=== PATIENT | female | born 1960 | race Hispanic/Latino ===

== ENCOUNTER 2023-10-13 14:56 | Emergency (ER) | payer OTHER, SELFPAY ==
--- NOTE | ~2023-10-13 | CT_ITS ---
EXAMINATION: CT brain wo con DATE: 10/13/2023 17:13 INDICATION: Headache. Fall. TECHNIQUE: Computed tomography (CT) of the head was performed without intravenous contrast. The mA wa s adjusted according to patient size. Iterative reconstruction technique was employed. The dose-lengt h product was 605.33 mGy-cm. COMPARISON: None FINDINGS: There is no intracranial hemorrhage, acute infarction, or abnormal intracranial mass lesion . The ventricles are normal in size. There are likely changes of ocular lens replacement surgeries. T here is mild mucosal thickening in right maxillary sinus. The mastoid air cells are normal. IMPRESSION: 1. Normal brain. Reviewed, dictated and finalized at location A. UCTION SCHEDULER IMPRESSION: 1. Normal brain.
[2023-10-13 15:00] VITALS: BP 167/64; PULSE 102; RESP 16; TEMP 36.1; O2SAT 95
[2023-10-13 15:36] VITALS: BP 158/72; PULSE 100; RESP 16; O2SAT 96
[2023-10-13] MEDS: KETOROLAC 30 MG/ML VIAL (*BKC) IM (17:27)
[2023-10-13 17:32] VITALS: BP 160/95; PULSE 82; RESP 18; O2SAT 99
[2023-10-13 18:34] VITALS: BP 131/79; PULSE 82; RESP 18; O2SAT 100
[2023-10-13] MEDS: HYDROcodone/acetaminophen (*CRX) 5-325 MG TABLET 1 TAB PO (18:35)
--- NOTE | 2023-10-13 18:39 | ED.GENADULT ---
HPI - General Adult General Chief complaint: Headache Stated complaint: fall, head injury Time Seen by Provider: 10/13/23 15:35 History of Present Illness HPI narrative: 63-year-old female presents emergency department for evaluation for headache that started after a ground level fall a few days ago. Patient was working at [employer] and slipped and corns causing her to strike the back of the head. Patient denies loss of consciousness. Patient has been taking Tylenol and ibuprofen for pain control with no significant improvement. Patient denies any associated numbness or weakness. Patient is able to ambulate at baseline. Related Data Allergies Allergy/AdvReac Type Severity Reaction Status Date / Time diphenhydramine Allergy Itching Verified 10/13/23 15:42 Review of Systems Review of Systems: All systems reviewed & are unremarkable except as noted in HPI and below Exam Narrative: APPEARANCE: Well appearing, no pain, no distress, well-nourished. HEAD: normocephalic, atraumatic. EYES: PERRLA/EOMI, conjunctivae clear. NOSE: Normal no drainage EARS:TMS clear with good light reflex. THROAT: Pharynx clear, no exudate. NECK: Supple. No adenopathy, no masses. RESPIRATORY: Airway patent, respirations nonlabored. Clear to auscultation bilaterally, no rales, rhonchi, wheezing. CARDIOVASCULAR: Regular rate and rhythm without murmurs rubs or gallops. ABDOMINAL: Soft, nontender, nondistended, normal bowel sounds MUSCULOSKELETAL: Moves all extremities. Strength/ROM intact, No edema, No calf tenderness. NEURO: Alert. Cranial nerves II through XII intact. Good gait. Good coordination SKIN: Warm, dry. Normal Color Course Course Emergency Course: 63-year-old female presented emergency department for evaluation of headache. Patient reports he did have improvement of her headache with the Toradol. Head CT shows no acute intracranial abnormality. Patient was concerned she might have urinary tract infection. Patient did have +glucose but no evidence of underlying infection. Patient and family were updated on the results of the workup and They were encouraged to have close follow-up with a primary care physician. Vital Signs Vital signs: Vital Signs Temperature 97.0 F L 10/13/23 15:00 Pulse Rate 102 H 10/13/23 15:00 Respiratory Rate 16 10/13/23 15:00 Blood Pressure 167/64 H 10/13/23 15:00 Pulse Oximetry 95 10/13/23 15:00 Oxygen Delivery Room Air 10/13/23 15:00 Temperature 97.0 F L 10/13/23 15:00 Pulse Rate 82 10/13/23 18:34 Respiratory Rate 18 10/13/23 18:34 Blood Pressure 131/79 10/13/23 18:34 Pulse Oximetry 100 10/13/23 18:34 Oxygen Delivery Room Air 10/13/23 15:36 Medical Decision Making Differential Diagnosis Differential Diagnosis: migraine, headache, concussion, intracranial abnormality Vital Signs Vital Signs: Vital Signs Temperature 97.0 F L 10/13/23 15:00 Pulse Rate 102 H 10/13/23 15:00 Respiratory Rate 16 10/13/23 15:00 Blood Pressure 167/64 H 10/13/23 15:00 Pulse Oximetry 95 10/13/23 15:00 Oxygen Delivery Room Air 10/13/23 15:00 Temperature 97.0 F L 10/13/23 15:00 Pulse Rate 82 10/13/23 18:34 Respiratory Rate 18 10/13/23 18:34 Blood Pressure 131/79 10/13/23 18:34 Pulse Oximetry 100 10/13/23 18:34 Oxygen Delivery Room Air 10/13/23 15:36 Lab Data Labs: Lab Results 10/13/23 Range/Units 18:36 Urine Color Yellow (Yellow) Urine Appearance Clear (Clear) Urine pH 5.5 (5.0-9.0) Ur Specific [place] 1.033 (1.001-1.035) Urine Protein Negative (Negative) mg/dL Urine Glucose (UA) 3+ H (Negative) mg/dL Urine Ketones Negative (Negative) mg/dL Ur Blood (Man) Negative (Negative) Urine Nitrate Negative (Negative) Urine Bilirubin Negative (Negative) Urine Urobilinogen 0.2 (<2.0) mg/dL Leukocyte Esterase Rfl Negative (Negative) ARSH/UL Discharge Plan Discharge Clinical Im
[2023-10-13 18:43] LABS: Appearance Urine Clear (Clear); Bilirubin Urine Negative (Negative); Blood Urine Negative (Negative); Color Urine Yellow (Yellow); Glucose Urine UA 3+ mg/dL (Negative); Ketones Urine Negative (Negative); Leukocyte Esterase Ur Negative LEU/UL (Negative); Nitrate Urine Negative (Negative); Protein Urine Negative (Negative); Specific Grav Ur 1.033 (1.001-1.035); Urobilinogen Urine 0.2 mg/dL (<2.0); pH Urine 5.5 (5.0-9.0)
[2023-10-13 18:48] LABS: Add Urine Microscopic? NO
== END 2023-10-13 19:04 | disposition home or self-care (01) ==
PROVIDERS: Emergency Provider Emergency Medicine
DX: R51.9 Headache, unspecified (principal); W01.0XXA Fall on same level from slipping, tripping and stumbling without subsequent striking against object, initial encounter
CPT/HCPCS: 70450; 81003; 96372; 99284; A9270; J1885

== ENCOUNTER 2024-12-15 19:54 | Emergency (ER) | payer SELFPAY ==
--- NOTE | ~2024-12-15 | CT_ITS ---
EXAMINATION: CTA BRAIN/CAROTID DATE: 12/16/2024 01:13 INDICATION: Bilateral arm tremors and ataxia. TECHNIQUE: Computed tomographic angiography (CTA) of the head and neck was performed with 100 mL Omni paque-350 intravenous contrast. Multiplanar reconstructions and maximum intensity projection 3D-recon structions of the carotid arteries and of the intracranial arteries were created by the technologist on a separate workstation. Precontrast CT of the head was also obtained. Automated exposure control and iterative reconstruction technique were employed.The dose-length product was 1980.35 mGy-cm. COMPARISON: Head CT dated 10/13/2023 FINDINGS: Carotid arteries: Aortic arch is normal in caliber with minimal nonhemodynamically significant atherosclerotic plaque a nd no dissection. There is a small of atherosclerotic plaque with 0% stenosis of the right and left c arotid bulbs relative to normal distal artery lumen diameter (NASCET criteria). Mild respiratory christiana on and dependent atelectasis in the visualized upper lungs. Cervical soft tissues are unremarkable. M ild cervical spondylosis. Head: No acute intracranial hemorrhage, acute infarction or abnormal extra axial fluid collection. There is mild scattered white matter hypoattenuation consistent with chronic small vessel ischemic disease. V entricles are normal and symmetric. No mass/mass effect. Changes of bilateral intraocular lens replac ement. The orbits, paranasal sinuses and mastoid air cells are normal. Intracranial arteries The left vertebral artery is dominant. There is no hemodynamically significant stenosis in the verteb ral, basilar and internal carotid arteries. Vertebral arteries are codominant. There are no aneurysms identified. Both A1 and P1 segments are patent. Cerebral arterial arborization appears symmetric. IMPRESSION: 1. Small amount of atherosclerotic plaque with 0% stenosis of the right and left carotid bulbs relati ve to normal distal artery lumen diameter (NASCET criteria). 2. Unremarkable cerebral CT angiogram with no hemodynamic significant stenosis, thrombosis or aneurys m. 3. Normal aging brain with mild scattered white matter hypoattenuation consistent with chronic small vessel ischemic disease. No acute intracranial process. Reviewed, dictated and finalized at location B. CTOR CLINICAL PHARMACOLOGY IMPRESSION: 1. Small amount of atherosclerotic plaque with 0% stenosis of the right and lef t carotid bulbs relative to normal distal artery lumen diameter (NASCET criteri a). 2. Unremarkable cerebral CT angiogram with no hemodynamic significant stenosis, thrombosis or aneurysm. 3. Normal aging brain with mild scattered white matter hypoattenuation consiste nt with chronic small vessel ischemic disease. No acute intracranial process.
--- NOTE | ~2024-12-15 | CT_ITS ---
EXAMINATION: CT cervical spine wo con DATE: 12/16/2024 01:13 INDICATION: Arm tremors. TECHNIQUE: Computed tomography (CT) of the cervical spine was performed without intravenous contrast. The dose-length product was 365 mGy-cm. Automated exposure control and iterative reconstruction tech Sonnedixque were employed. COMPARISON: None FINDINGS: Craniovertebral junction is normal. Odontoid process is normal. No evidence for perched fac et. Vertebral body heights are maintained. There is mild superior endplate compression deformity of T 3, likely chronic. Lung apices are normal. No paraspinal soft tissue abnormality. No acute fracture or traumatic malalignment. IMPRESSION: 1. No acute abnormality of the cervical spine Reviewed, dictated and finalized at location A. L DBA
--- OUTSIDE RECORDS SUMMARY | 2024-12-15 19:56 | XMS_ITS ---
Author Organization [facility] Address [address] [place] [address] Care Team Providers Care Technical Service Rep Name Role Phone Thomas Borjas Primary Care Provider Social History Sex Assigned At : Social History Observation Description Sex Assigned At Female Encounters Encounter Location Date Provider Diagnosis [address] [address] 06/24/2023 Thomas Borjas GERD (gastroesophageal reflux disease) K21.9 Assessments Encounter Date Diagnosis (ICD Code) Assessment Notes Treatment Notes Treatment Clinical Notes Section Notes 06/24/2023 GERD (gastroesophage al reflux disease) (ICD-10 - K21.9) Plan Of Treatment No Information Progress Notes * Keyur HEINB:1960 (62 yo F)Acc No.[id number]:06/24/2023 Patient:?HeinGabby fernandez :1960???Age:62 Y???Sex:Female Address:[address] [place] [address], [id number] * true * Date:? Generated for Simon koch/Zachary/eTransmitting on:?12/15/2024 07:56 PM BOOKKEEPERS SUPERVISOR
--- OUTSIDE RECORDS SUMMARY | 2024-12-15 19:57 | XMS_ITS | Patient Health Record ---
Author Organization [facility] Address [address] [place] [address] Care Team Providers Care Topographic Computator Name Role Phone Thomas Borjas Primary Care Provider [phone] Allergies No Known Allergies Reason For Referral No Information Medications Medication SIG (Take, Route, Frequency, Duration) Notes Start Date End Date Status Gabapentin 100 MG TAKE 2 CAPSULES BY M OUTH ONCE DAILY for 15 Active Aspirin Low Dose 81 MG TAKE 1 TABLET BY MOUTH EVERY DAY FOR 30 DAYS for 30 Active Januvia 100 MG TAKE 1 TABLET BY PENNIE TH EVERY DAY FOR 30 DAYS for 30 Active metFORMIN HCl 500 MG TAKE 1 TABLET BY MO UTH TWICE A DAY WITH MEALS for 30 Active Atorvastatin Calcium 40 MG TAKE 1 TABLET BY MOUTH EVERY DAY FOR 30 DAYS for 30 Active Famotidine 40 MG TAKE 1 TABLET BY PENNIE TH EVERY DAY AT BEDTIME FOR 30 DAYS Orally Once a day Active Betamethasone Valerate 0.1 % APPLY TO AFFECTED AREA ONCE DAILY FOR 30 DAYS Externally Twice a day as needed for 30 days Active TEST STRIPS, FORMULARY ANY DIRECTED V IA METER twice a day for 30 days 03/19/2022 Active metformin as directed Unknown Betamethasone Dipropionate 0.05 % 1 application as needed Externally Twice a day for 14 days 04/01/2022 Active Nystatin 785675 UNIT/GM 1 application Ex ternally Twice a day for 30 days 03/19/2022 Active Social History Tobacco Use: Social History Observation Description Date Details (start date - stop date) Never Smoker NA - NA Sex Assigned At : Social History Observation Description Sex Assigned At Female Dont use, Tobacco Use/Smoking Question Answer Notes Are you a nonsmoker PRAPARE Question Answer Notes What is your current housing situation? I have h ousing Are you worried about losing your housing? No What is the highest level of school that you have finished? High school diploma or GED What is your current work situation? Unemployed and seeking work In the past year, have you o r any family members you live with been unable to get any of the following when it was really needed? Check all that apply Clothing,Utilities Has lack of transportation k ept you from medical appointments, meetings, work or from getting things needed for daily living? No How often do you see or talk to people that you care about and feel close to? (For example: talking to friends on the phone, visiting friends or family, going to roman catholic or club meetings) More than 5 times a week How stressed are you? Stress is when someone feels tense, nervous, anxious, or can\t sleep at night because their mind is troubled A little bit In the past year have you sp ent more than 2 nights in a row in a care home, usp, penitentiary center, or juvenile correctional facility? I choose not to answer this question Are you a refugee? No What country are you from? Country Other than the [place] (please write in notes) Please specify: [facility] Do you feel physically and e motionally safe where you currently live? Yes In the past year, have you b een afraid of your partner or ex-partner? No PRAPARE Score: 9 Problems Problem Type SNOMED Code ICD Code Onset Dates Problem Status W/U Status Risk Notes Problem Tobacco user (529716135) Nicotine dependence, unspecified, uncomplicated (F17.200) Active confirmed Problem Gastroesophageal reflux disease (520032596) GERD (gastroesophagea l reflux disease) (K21.9) Active confirmed Problem Diabetes mellitus without complication (831765310) Diabetes (E11.9) Active confirmed Problem Back pain (079356196) Back pain (M54.9) Active confirmed Problem Breast cancer screening (624663298) Breast cancer screening (Z12.39) Active confirmed Problem Glucosuria (64291788) Glucosuria (R81) Active confirmed Problem Pain (82088859) Pain (R52) Active confirmed Problem Hyperlipidaemia (42696298) Hyperlipemia (E78.5) Active confirmed Problem Seasonal allergy (911163396) Seasonal allergies (J30.2) Active confirmed Problem Gynecological examination normal (467523017045410) Well woman exam with routine gynecological exam (Z01.419) Active confirmed Problem Abdominal discomfort (74874040) Abdominal discomfort (R10.9) Active confirmed Problem CT of abdomen abnormal (92528545850375942) Abnormal CT of the abdomen (R93.5) Active confirmed Plan Of Treatment Pending Test Test Name Order Date Xray : Spines, cervical 2 views 12/25/19 Xray : Thoracic spine 2 views 12/25/2022 Xray : LS Spine 12/25/2022 Mammogram Breast - Bilateral Diagnostic 11/13/2022 Insurance Providers Payer Name Payer Address Payer Phone Subscriber Number Group Number Insured Name Patient Relationship to Insured Coverage Start Date Coverage End Date [employer] [facility] [address] [place] [phone] [id number] Gabby Aguilar Self - patient is the insured 2 Medical (General) History Medical History History ICD Code diabetes type 2 hyperlipidemia GERD Surgical History Surgery Date(Month/Year) C section 1991 appendectomy 1998 Hospitalization History Reason Date(Month/Year) Child 1991 appendectomy 1998
--- OUTSIDE RECORDS SUMMARY | 2024-12-15 19:57 | XMS_ITS ---
Author Organization [facility] Address [address] [place] [address] Care Team Providers Care Director Technical Name Role Phone Thomas Borjas Primary Care Provider [phone] Camila Fischer REASON FOR VISIT Used to see Marine-Follow up and mammogram order Social History Sex Assigned At : Social History Observation Description Sex Assigned At Female Encounters Encounter Location Date Provider Diagnosis [address] [address] 06/24/2023 Camila Fischer Plan Of Treatment No Information Progress Notes * Liv HEINOraB:1960 (64 yo F)Acc No.[id number]:06/24/2023 UNLOCKED PROGRESS NOTE Progress Notes Patient:?Liv HEINa Provider:?Camila Fischer, MSN, AP RN, MORTGAGE PROCESSOR-BC, MORTGAGE PROCESSOR-C :1960???Age:62 Y???Sex:Female D ate:06/24/2023 Address:[address] [place] [id number] Pcp:Thomas Borjas Subjective: * Chief Complaints: * ???1. Used to see Marine-Follow up and mammogram order. * Medical History:? Objective: * Vitals:? Assessment: Plan: * Treatment: * * Electronic signature of Andrei Fischer , METAL FITTER, [id number] on 12/15/2024 at 07:56 PM GEOCHEMISTRY TEACHER Sign off status: Pending * Provider:?Camila mora, MSN, METAL FITTER, MORTGAGE PROCESSOR-BC, MORTGAGE PROCESSOR-C Date:?06/24/2023 Generated for Printing/Faxing/eTransmitting on:?12/15/2024 07:56 PM GEOCHEMISTRY TEACHER
--- OUTSIDE RECORDS SUMMARY | 2024-12-15 19:57 | XMS_ITS | Data Portability ---
Author Organization [place] [facility], Main Office Address [address] [place] [address] Care Team Providers Care Adult Basic Education Teacher Name Role Phone NIRMAL MULLEN Ceramic Engineer Assessment Encounter Date Assessment Date Assessment LastModified by Organization Details LastModified Time 2023 2023 63-year-old patient presents today sacral fracture that happened on 08/20/2023. She was at work when she slipped and fell on a puddle of tea and landed directly on her buttocks. She felt immediate pain. She presented to the emergency room where CT was performed that showed a S4 level nondisplaced sacral fracture. Since the injury she has been taking tramadol and using a donut to sit on. It is still extremely painful for her to walk or sit. She denies any injury to the tailbone in the past. Review of systems per patient questionnaire Imaging: CT reviewed from the emergency room shows a nondisplaced fracture of the distal sacrum at the S4 level. Physical exam: Patient walking with an antalgic gait. Pain with palpitation over the sacral area. Sensation intact. We will treat her fracture non operatively. She should continue to use the donut for sitting if it is more comfortable for her. We will order meloxicam for anti-inflammator y therapy. We will have her do physical therapy but she should wait to start for another 2 weeks due to her pain. We will have her off of work until we see her back in 4 weeks. Not available 08/28/2023 09:45:49 10/13/2023 10/13/2023 63-year-old patient presents today sacral fracture that happened on 08/20/2023. She was at work when she slipped and fell on a puddle of tea and landed directly on her buttocks. We ordered meloxicam as well as a course of physical therapy. She has been attending therapy for about 2 weeks now. She states is helping some but she is still having pain with sitting and walking. She rates her pain at 8/10 today. Physical exam: Patient walking with an antalgic gait. Sitting on donut. Pain with palpitation over the sacral area. Sensation intact. We will have her continue physical therapy at this time to work on her gait and sitting. Since she is still experiencing pain with daily activities we will keep her on the same work restrictions. We will see her back in 4 weeks to check her progress. Not available 10/13/2023 12:40:52 12/02/2023 12/02/2023 63-year-old female presents for follow-up of her sacral minimally displaced fracture treated non operatively. She reports still having pain in the pelvis, pain with prolonged sitting or standing, currently rated as 8/10. She has stopped her course of physical therapy. She is still taking tramadol and meloxicam. She still has tenderness over the sacrum, which bothers her with walking. She has good range of motion strength of her bilateral lower extremities. Given her failure to improve with persistent conservative management, we will refer her to a paint prep technician, who may consider doing a cortisone injection. We will keep her on the same work restrictions. We will have her follow up pending recs from pain management.. [email or web address] Not available 12/02/2023 23:31:17 Plan of Treatment Reminders Order Date Submit Date Provider Last Modified By Organization Details Last Modified Time Details Appointments None recorded. Lab None recorded. Referral physical therapist referral - [facility] 023 [facility], [address], [place], [address], 3 17:41:12 pain management referral - Pt is W/C 2023 024 [place], [address], [address], [place], [address], 4 12:50:40 Procedures None recorded. Surgeries None recorded. Imaging None recorded. Medication Orders Mobic 15 mg tablet 2022 023 [email or web address] [id number], [address] [place], [place], [id number], 09:46:14 Patient TargetsNo targets recorded. Patient InstructionsNo instructions recorded. Reason for Referral Physical Therapist Referral for Pain in sacrum [facility] TREAT Referring Physician: Mary Moy, Orthopedic Surgery, Encounter Date: 2023 Pain Management Referral for Pain in sacrum Pt is W/C Referring Physician: Blade Canales, Orthopedic Surgery, Encounter Date: 12/02/2023 Results Created Date Observation Date Name Description Value Unit Range Abnormal Flag Note LastModifiedBy Organization Detail LastModifiedTime 08/24/[address], cervi karin spine , w/o contr ast No observ ation record ed. [email or web address] Not Available 2022 17:04:50 08/24/20 23 XR, elbow No observ ation record ed. [email or web address] Not Available 2022 17:04:54 08/24/[address], pelvi s, w/o contr ast No observ ation record ed. [email or web address] Not Available 2022 17:04:59 Result Notes None recorded. Problems Name Problem SNOMED Code Status Onset Date Resolution Date Notes Provider Name and Address Organization Details Recorded Time Imaging of gastrointest inal tract abnormal 450350878 Active 2022 Not Available [facility] 3 01:47:44 Pain in sacrum 3264226254 Active 2022 Radha Callahan, ATC L null, [facility] [employer] 3 15:32:35 Low back pain 986390235 Active 2022 Anay caceres, [employer] [facility] [employer] 10:55:51 Problem Notes None recorded. Procedures Surgical History None recorded. Imaging Results Imaging Date Name Status LastModified by Organiz ation Details LastModified Time 08/24/2023 CT, cervical spine, w/o contrast completed [email or web address] Information not available 08/24/2023 17:04:50 08/24/2023 XR, elbow completed [email or web address] Information no t available 08/24/2023 17:04:54 08/24/2023 CT, pelvis, w/o contrast completed [email or web address] Information not available 08/24/2023 17:04:59 Procedure Notes None recorded. Medical Equipment None Reported. Allergies Allergen ID Allergen Name Allergen Category Reaction Reaction Severity Criticality Documentation Date Start Date Code Code System Note Provider Name and Address Organization Details Recorded Time 18305 Benadryl medicatio n rash severe Not available 01/15/2023 7 RxNorm Not Available [facility] 01:48:25 Medications Name Sig Start Date Stop Date Status Note LastModified by Organization Details LastModified Time atorvastati n 40 mg tablet TAKE 1 TABLET BY MOUTH EVERY DAY active Not Available Not Available No t Available metformin 500 mg tablet TAKE 1 TABLET BY MOUTH TWICE A DAY WITH MEALS active Not Available Not Available No t Available ondansetron HCl 4 mg tablet TAKE 1 TABLET BY MOUTH EVERY 8 HOURS active Not Available Not Available No t Available famotidine 40 mg tablet TAKE 1 TABLET BY MOUTH EVERY DAY AT BEDTIME active Not Available Not Available No t Available tramadol 50 mg tablet Take 1 tablet every 6-8 hours by oral route as needed. 2022 active Not Available Not Available Not Avai lable Mi-Acid Gas Relief (simethicon e) 80 mg chewable tablet CHEW 1 TAB BY MOUTH 3 TO 4 TIMES A DAY NEEDED FOR ABDOMINAL DISTENTIO N active Not Available Not Available No t Available Mobic 15 mg tablet Take 1 tablet every day by oral route. 2022 active Not Available Not Available Not Avai lable famotidine 20 mg tablet TAKE 1 TABLET BY MOUTH TWICE A DAY [id number] active Not Available Not Available No t Available dicyclomine 20 mg tablet TAKE 1 TABLET BY MOUTH THREE TIMES A DAY active Not Available Not Available No t Available betamethaso ne valerate 0.1 % topical cream APPLY TO AFFECTED AREA TWICE A DAY NEEDED active Not Available Not Available No t Available pantoprazol e 40 mg tablet,chiara yed release TAKE 1 TABLET BY MOUTH EVERYDAY AT BEDTIME active Not Available Not Available No t Available nystatin 100,000 unit/gram topical cream APPLY TO AFFECTED AREA TWICE A DAY FOR 30 DAYS 11/05 completed Not Available Not Available Not Available aspirin 81 mg chewable tablet TAKE 1 TABLET BY MOUTH EVERY DAY active Not Available Not Available No t Available gabapentin 100 mg capsule TAKE 2 CAPSULES BY MOUTH ONCE DAILY 08/25 completed Not Available Not Available Not Available metoclopram rozina 10 mg tablet TAKE 1 TAB BY MOUTH 30 MINS BEFORE MEALS AND AT BEDTIME active Not Available Not Available No t Available cyclobenzap rine 5 mg tablet TAKE 1 TABLET BY MOUTH EVERY 8 HOURS active Not Available Not Available No t Available aspirin active Not Available Not Avail able Not Available Januvia 100 mg tablet TAKE 1 TABLET BY MOUTH EVERY DAY active Not Available Not Available No t Available OneTouch Verio test strips USE TO TEST TWICE A DAY 11/05 completed Not Available Not Available Not Available OneTouch Verio Flex Meter USE TO TEST TWICE A DAY 11/05 completed Not Available Not Available Not Available OneTouch Delica Plus Lancet 33 gauge USE TO TEST TWICE DAILY 11/05 completed Not Available Not Available Not Available Vitals Date Recorded Body mass index (BMI) Body height Oxygen saturation Oxygen saturation in Arterial blood by Pulse oximetry Heart rate Respiratory rate Body temperature Body weight Systolic blood pressure Diastolic blood pressure Provider Name and Address Organization Details Last Updated DateTime 3 26.5 kg/m2 147.32 cm 98 % 98 % 79 /min 14 /min 98 [degF] 88510.2 3 g 110 mm[Hg] 76 mm[Hg] Not Available [facility] 3 01:47:27 Date Recorded Body height Body mass index (BMI) Body weight Provider Name and Address Organization Details Last Updated DateTime 2023 147.32 cm 26.1 kg/m2 25250.05 g SHIRLENE Mallory [employer] 2023 15:30:16 Date Recorded Body height Body mass index (BMI) Body weight Provider Name and Address Organization Details Last Updated DateTime 10/13/2023 147.32 cm 25.9 kg/m2 58092.45 g SCOTTY Zavala [employer] 10/13/2023 11:44:39 Date Recorded Body height Body mass index (BMI) Body weight Provider Name and Address Organization Details Last Updated DateTime 12/02/2023 147.32 cm 26.1 kg/m2 51863.05 g Tere Alvarez CNA [place] [facility] 12/02/2023 11:15:47 Social History Question Answer Notes LastModified by Organizat ion Details LastModified Time Tobacco Smoking Status Former Smoker Not Available [facility] 01/15/2023 01:47:04 What Is Your Level Of Alcohol Consumption? None [email or web address] Information not available 2023 Have You Recently Traveled Abroad? No [id number] Information not available 01/15/2023 Sex: Unknown Functional Status None recorded. Mental Status None recorded. Family History Relationship Description Onset Age of this Age Resolved Age Notes LastModified by Organization Details LastModified Time Father No current problems or disability [id number] Not available 01/15/2023 01:47:20 Mother No current problems or disability [id number] Not available 01/15/2023 01:47:20 Medical History Condition Response HIGH CHOLESTEROL / HYPERLIPIDEMIA Y BACK / NECK PROBLEMS USE OF BLOOD THINNERS Y DIABETES, TYPE Y Gynecological HistoryNo gynecological history recorded. Obstetrics History GPAL:G 0 P 0 0 0 0 Past Encounters Encounter ID Performer Location Encounter Start Date Encounter Closed Date Diagnosis/Indication Diagnosis SNOMED-CT Code Diagnosis ICD10 Code Diagnosis Note [id number] [facility] General Surgery [address] [facility], [address] [address] 12/17/2022 00:00:00 12/17/2022 16:06:14 [id number] Mary Moy NP [facility] [place] [address] [place] [address] 2023 15:07:45 2023 16:12:31 Pain in sacrum 8961370347 M54.50 [id number] Mary Moy NP [facility] [place] [address] [place] [address] 10/13/2023 11:42:08 10/13/2023 12:12:18 [id number] Blade Canales MD [facility] [place] [address] [place] [address] 12/02/2023 11:13:13 12/02/2023 11:30:14 Pain in sacrum 8546473673 M54.50 Health Concerns Section Related Observation LastModified by Organization Detai ls LastModified Time None Recorded Concern Status LastModified by Organization Details LastModified Time None Recorded Advance Directives Directive None Recorded Payers Encounter Date Sequence Insurance Name Policy Number Policy Abarca Covered Member ID Abarca Member ID Guarantor Name 2023 [facility] [employer] Syncapse aGbby Aguilar 10/13/2023 [facility] [employer] Syncapses Gabby Aguilar 12/02/2023 [facility] [employer] Soft [facility] Gabby Aguilar OBGyn Episode No OBEpisode recorded.
[2024-12-15 20:00] VITALS: BP 135/84; PULSE 119; RESP 17; TEMP 36.5; O2SAT 94
--- NOTE | 2024-12-15 23:22 | ED_ITS ---
HPI - Extremity Problem General Chief complaint: Extremity Problem,Nontraumatic Stated complaint: hands have been shaking since 12/10 Time Seen by Provider: 12/15/24 23:21 Source: patient and family (patient's 's niece) Mode of arrival: ambulatory Limitations: language barrier (ESL (primary language Tagjuan josé) though quite fluent in Yakut) History of Present Illness HPI Narrative: Patient presents with concern for bilateral arm tremors since 12/10/24. She states that she and her got into an argument that day and he was throwing a rice cooker and a Ninja around and angry. He is currently undergoing treatment for lymphoma. They started shaking. She denies them feeling sore or any paresthesias. Her insulin regimen was changed from 15U QHS to 18U QHS to 20U QHS but that change took place more than a week before and no other medication changes. She took her evening dose yesterday 12/14/24 but not yet on 12/15/24. She is on atorvastatin, losartan, famotidine, and ASA 81mg as well as vitamins. No other new meds. The tremor is present both at rest and with action. Denies pain. No prior diagnosis of this. Denies constipation, diarrhea, or fever. No altered mental status. No headache or neck pain. No trauma. Denies alcohol use (quit years ago). No trauma. She at first states she does not feel safe in the home but does feel safe with her 's family member (niece) who presents with her today. She ate at 3pm. Notes being hungry. Related Data Allergies Allergy/AdvReac Type Severity Reaction Status Date / Time diphenhydramine Allergy Itching Verified 12/15/24 19:58 [facility] Past Medical History Medical History Insulin dependent diabetes mellitus Social History Social History (Updated 12/16/24 @ 19:58 by Jessica Hui MD) Alcohol intake: former Alcohol use details: quit years ago Living arrangements: with family Additional living arrangements comments: Spouse Exam 2 Narrative: GENERAL: Well-appearing, well-nourished, and in no acute distress. HEAD: Normocephalic, atraumatic. EYES: Non injected, non icteric ENT: Nares clear, no rhinorrhea or epistaxis. NECK: Supple. No meningismus. Demonstrates ability to flex/extend and rotate neck. CHEST: Speaking in full sentences. No respiratory distress. HEART: Regular rate and rhythm. . ABDOMEN: Soft, nondistended. EXTREMITIES: Normal range of motion. No lower extremity edema. Soft, nontender. No bony deformities or tenderness to palpation. SKIN: Warm, dry, no rash. NEURO: No focal deficits. Alert and oriented x3. Patient has bilateral upper extremity tremor that is quite significant at rest and occurs throughout her entire arms including forearms and into the hands. This also persists with action. Ataxia bilaterally on qkyoyn-hawv-wbivcy assessment but not as pronounced on heel-mackay assessment. Patient speaks clearly without aphasia or dysarthria. No bilateral ankle clonus. PSYCH: Normal mood and affect. Course Vital Signs Vital signs: Vital Signs Temperature 97.7 F 12/15/24 20:00 Pulse Rate 119 H 12/15/24 20:00 Respiratory Rate 17 12/15/24 20:00 Blood Pressure 135/84 12/15/24 20:00 Pulse Oximetry 94 12/15/24 20:00 Oxygen Delivery Room Air 12/15/24 20:00 Temperature 97.7 F 12/15/24 20:00 Pulse Rate 81 12/16/24 06:28 Respiratory Rate 22 H 12/16/24 06:28 Blood Pressure 142/62 H 12/16/24 06:28 Pulse Oximetry 98 12/16/24 06:28 Oxygen Delivery Room Air 12/15/24 20:00 MDM - Extremity (Nontraumatic) MDM Narrative Medical decision making narrative: Patient presents with bilateral upper extremity tremor. This started after an argument Thursday with her who has outbursts of anger during which he throws objects per patient. He is currently underoing treatment for cancer. In the emergency department she is afebrile with vital signs notable for tachycardia. Differential Diagnosis tremor Enhanced physiologic tremor (e.g. anxiety); Essential tremor (familial); Parkinson's disease; hyperthyroidism, hepatic encephalopathy, cerebellar dysfunction, Raymundo's disease, toxicologic (caffeine, theophylline, sympathomimetics, ethanol withdrawal, antipsychotics, metoclopramide, lithium, levothyroxine, tricyclic antidepressants, valproic acid, hydrogen sulfide, serotonin syndrome, salicylate toxicity, bupropion, heavy metal toxicity); West Nile virus. Seizure disorder. Concern for possible rhabdomyolysis, symptomatic anemia, electrolyte abnormalities. Will obtain labs including assessments of electrolytes and CPK and imaging as well. Will give Valium to assess for response and to facilitate obtaining imaging. Elevated hemoglobin, possibly due to hemoconcentration although no prior for comparison. Patient's friend/family member/relative/support person does state that they came to the house and observed the interaction between patient and her . They were argumentative and she states patient was getting in her 's face and was initially not tremulous but then became tremulous upon exiting the room. This occurred again today. She also has a video clip she secretly took while in the hospital room with patient that shows patient not tremoring at rest and putting her socks on with only a mild tremor observed briefly for a few seconds but then with no tremor appreciated. She has hyperglycemia with an anion gap but no devon acidosis. She does state that she hasn't eaten since 3pm. Will give 1L IV Fluids and her evening dose of 20 units glargine since she hasn't received this yet (daily, QHS). Sodium corrects to normal (pseudo hyponatremia) of 140/141mEq/L in the setting of hyperglycemia. CPK normal. Patient is reassessed and without tremor. Patient's 's niece can pick her up and patient feels comfortable with this. Lab Data Attestation: I reviewed the patient's lab results. 12/16/24 00:11 12/16/24 00:11 Labs: Lab Results 12/16/24 12/16/24 Range/Units 00:11 02:26 WBC 8.2 (4.5-10.0) K/mm3 RBC 5.44 H (4.2-5.4) M/mm3 Hgb 16.1 H (12.0-15.0) g/dL Hct 47.1 H (37.0-47.0) % MCV 86.6 (80-100) fl MCH 29.6 (26-34) pg MCHC 34.2 (32-36) g/dl RDW 12.3 (11.5-14.5) % Plt Count 278 (150-375) k/mm3 MPV 11.4 H (7.4-10.4) fl Immature Gran % (Auto) 0.2 (0-0.5) % Neut % (Auto) 55.7 (45.5-73.1) % Lymph % (Auto) 33.5 (18.3-44.2) % [place] % (Auto) 7.5 (2.6-8.5) % Eos % (Auto) 1.8 (0-4.4) % Baso % (Auto) 1.3 H (0.2-1.2) % Lymph # (Auto) 2.73 (0.9-3.2) K/mm3 [place] # (Auto) 0.6 (0.1-0.6) K/mm3 Eos # (Auto) 0.2 (0-0.3) K/mm3 Baso # (Auto) 0.1 (0.0-0.1) K/mm3 Abs Immat Gran (auto) 0.02 (0.00-0.031) K/mm3 Absolute Neuts (auto) 4.5 (1.3-6.7) K/mm3 Absolute Nucleated RBC 0.000 (0.0-0.012) K/mm3 Nucleated RBC % 0.0 (0.0-0.2) % Sodium 136 L (137-145) mmol/L Potassium 4.1 (3.4-5.0) mmol/L Chloride 100 (98-107) mmol/L Carbon Dioxide 21 L (22-30) mmol/L Anion Gap 15 H (4-12) mmol/L BUN 16 (7-17) mg/dL Creatinine 0.50 L (0.7-1.0) mg/dL Estim Creat Clear Calc Not Reportable Estimated GFR > 60 (59 - ) Glucose 327 H (65-110) mg/dL Calcium 9.6 (8.4-10.2) mg/dL Magnesium 2.2 (1.6-2.3) mg/dL Total Bilirubin 0.9 (0.2-1.3) mg/dL AST 26 (14-36) U/L ALT 31 (6-35) U/L Alkaline Phosphatase 119 (38-126) U/L Ammonia < 9 L (9-30) umol/L Total Creatine Kinase 23 L (30-135) U/L Total Protein 8.0 (6.3-8.2) g/dL Albumin 4.6 (3.5-5.1) g/dL TSH 1.380 (0.465-4.680) uIU/mL Urine Color Yellow (Yellow) Urine Appearance Clear (Clear) Urine pH 7.0 (5.0-9.0) Ur Specific [place] > 1.045 H (1.001-1.035) Urine Protein Negative (Negative) mg/dL Urine Glucose (UA) 2+ H (Negative) mg/dL Urine Ketones Trace H (Negative) mg/dL Ur Blood (Man) Negative (Negative) Urine Nitrate Negative (Negative) Urine Bilirubin Negative (Negative) Urine Urobilinogen 0.2 (<2.0) mg/dL Leukocyte Esterase Rfl Negative (Negative) ARSH/UL Salicylates < 1.0 L (2-20) mg/dL Ethyl Alcohol < 10 (<10) mg/dL Imaging Data Radiologist's impression: (STat Rad) CT HEad : No hemorrhage, hydrocephalus, mass effect, or herniation. CTA head: No acute occlusion, severe stenosis, or aneurysm. CTA neck: No significant stenosis or dissection. CT C-spine: No acute fracture subluxation. No prevertebral soft tissue swelling. Upper lungs unremarkable. Discharge Plan Discharge Clinical Impression: Tremor of both outstretched hands, Mixed action and resting tremor, Elevated hemoglobin, Hyperglycemia due to diabetes mellitus, Pseudohyponatremia, Glucosuria, Anxiety Patient Disposition: Home, Self-Care Condition: Stable Instructions: Antibiotic Form, Anxiety (ED), Diabetic Hyperglycemia (ED), Tremors (ED), Mediterranean Diet (DC) Additional Instructions: As we discussed, no clear medical cause for your symptoms although it does appear to be likely related to the stress you are under from your circumstances. You can use the prescribed medication as a temporary measure but this is not good for exterminator helper termite use and I recommend you please follow up with your primary care physician for exterminator helper termite management. Return to the ED with any new/worsening symptoms. Patient Language: Yakut Prescriptions: New lorazepam [Ativan] 0.5 mg tablet 0.5 mg PO DAILY PRN (Reason: anxiety) Qty: 7 0RF Follow-up/Referrals: Pramod Fisher MD [Primary Care Provider] - Stand Alone Forms: Work/School Release IP Time of Disposition: 06:10
--- OUTSIDE RECORDS SUMMARY | 2024-12-15 23:34 | XMS_ITS | Patient Health Record ---
Author Organization [facility] Address [address] [place] [address] Care Team Providers Care Video Production Specialist Name Role Phone Thomas Borjas Primary Care Provider Allergies No Known Allergies Reason For Referral [...] day for 14 days 04/01/2022 Active Nystatin 810892 UNIT/GM 1 application Ex ternally Twice a [...] phone, visiting friends or family, going to voodoo or club meetings) More than 5 times a week How stressed are you? Stress is when someone feels tense, nervous, anxious, or can\t sleep at night because their mind is troubled A little bit In the past year have you sp ent more than 2 nights in a row in a care home, custodial, alf center, or juvenile correctional facility? I choose not to answer this question Are you a refugee? No What country are you from? Country Other than the [place] (please write in notes) Please specify: [facility] Do you feel physically and e motionally safe where you currently live? Yes In the past year, have you b een afraid of your partner or ex-partner? No PRAPARE Score: 9 Problems Problem Type SNOMED Code ICD Code Onset Dates Problem Status W/U Status Risk Notes Problem Tobacco user (422925604) Nicotine dependence, unspecified, uncomplicated (F17.200) Active confirmed Problem Gastroesophageal reflux disease (406668294) GERD (gastroesophagea l reflux disease) (K21.9) Active confirmed Problem Diabetes mellitus without complication (499966982) Diabetes (E11.9) Active confirmed Problem Back pain (014435717) Back pain (M54.9) Active confirmed Problem Breast cancer screening (322812115) Breast cancer screening (Z12.39) Active confirmed Problem Glucosuria (21983293) Glucosuria (R81) Active confirmed Problem Pain (23148130) Pain (R52) Active confirmed Problem Hyperlipidaemia (24698706) Hyperlipemia (E78.5) Active confirmed Problem Seasonal allergy (762212880) Seasonal allergies (J30.2) Active confirmed Problem Gynecological examination normal (760240369487302) Well woman exam with routine gynecological exam (Z01.419) Active confirmed Problem Abdominal discomfort (15528874) Abdominal discomfort (R10.9) Active confirmed Problem CT of abdomen abnormal (21262771204672556) Abnormal CT of the abdomen (R93.5) Active [...] Coverage Start Date Coverage End Date [employer] [facility] [address] [place] [address] [id number] Gabby Aguilar Self - patient is the insured 2 Medical (General) History Medical History History ICD Code diabetes type 2 hyperlipidemia GERD Surgical History Surgery Date(Month/Year) C section 1991 appendectomy 1998 Hospitalization History Reason Date(Month/Year) Child 1991 appendectomy 1998
--- OUTSIDE RECORDS SUMMARY | 2024-12-15 23:34 | XMS_ITS ---
Author Organization [facility] Address [address] [place] [address] Care Team Providers Care Battery Plate Remover Name Role Phone Thomas Borjas Primary Care Provider Social History Sex Assigned At : Social History Observation Description Sex Assigned At Female Encounters Encounter Location Date Provider Diagnosis [address] [address] 06/24/2023 Thomas Borjas GERD (gastroesophageal reflux disease) K21.9 Assessments Encounter Date Diagnosis (ICD Code) Assessment Notes Treatment Notes Treatment Clinical Notes Section Notes 06/24/2023 GERD (gastroesophage al reflux disease) (ICD-10 - K21.9) Plan Of Treatment No Information Progress Notes * Keyur HEINB:1960 (62 yo F)Acc No.[id number]:06/24/2023 Patient:?HeinGabby fernandez :1960???Age:62 Y???Sex:Female Address:[address] [place] [address], [address] * true * Date:? Generated for Simon koch/Zachary/eTransmitting on:?12/15/2024 11:34 PM POLICY CHANGE CLERK
--- OUTSIDE RECORDS SUMMARY | 2024-12-15 23:35 | XMS_ITS ---
Author Organization [facility] Address [address] [place] [address] Care Team Providers Care Office Manager Executive Assistant Name Role Phone Thomas Borjas Primary Care Provider [phone] Camila Fischer REASON FOR VISIT Used to see Marine-Follow up and mammogram order Social History Sex Assigned At : Social History Observation Description Sex Assigned At Female Encounters Encounter Location Date Provider Diagnosis [address] [address] 06/24/2023 Camila Fischer Plan Of Treatment No Information Progress Notes * Liv HEINOraB:1960 (64 yo F)Acc No.[id number]:06/24/2023 UNLOCKED PROGRESS NOTE Progress Notes Patient:?Liv HEINa Provider:?Camila Fischer, MSN, AP RN, PRECIPITATOR SUPERVISOR-BC, PRECIPITATOR SUPERVISOR-C :1960???Age:62 Y???Sex:Female D ate:06/24/2023 Address:[address] [place] [id number] Pcp:Thomas Borjas Subjective: * Chief Complaints: * ???1. Used to see Marine-Follow up and mammogram order. * Medical History:? Objective: * Vitals:? Assessment: Plan: * Treatment: * * Electronic signature of Andrei Fischer , SOFTWARE ENGINEER BACKEND, [id number] on 12/15/2024 at 11:34 PM SENIOR MOBILE SOLUTIONS ARCHITECT Sign off status: Pending * Provider:?Camila mora, MSN, SOFTWARE ENGINEER BACKEND, PRECIPITATOR SUPERVISOR-BC, PRECIPITATOR SUPERVISOR-C Date:?06/24/2023 Generated for Printing/Faxing/eTransmitting on:?12/15/2024 11:34 PM SENIOR MOBILE SOLUTIONS ARCHITECT
[2024-12-16] VITALS (7 sets, daily range): BP systolic 121–171; BP diastolic 42–66; PULSE 66–87; RESP 16–22; O2SAT 95–99
[2024-12-16] MEDS: diazePAM INJ (*CRX) 10 MG/2 ML SYRINGE 5 MG IV PUSH (00:17)
[2024-12-16 00:20] LABS: Basophils Absolute Auto 0.1 K/mm3 (0.0-0.1); Basophils Percent Auto 1.3 % (0.2-1.2); Eosinophils Absolute Auto 0.2 K/mm3 (0-0.3); Eosinophils Percent Auto 1.8 % (0-4.4); Hematocrit 47.1 % (37.0-47.0); Hemoglobin 16.1 g/dL (12.0-15.0); Immature Granulocyte Absolute 0.02 K/mm3 (0.00-0.031); Immature Granulocyte Percent A 0.2 % (0-0.5); Lymphocytes Absolute Auto 2.73 K/mm3 (0.9-3.2); Lymphocytes Percent Auto 33.5 % (18.3-44.2); Mean Corpuscular HGB Conc 34.2 g/dl (32-36); Mean Corpuscular Hemoglobin 29.6 pg (26-34); Mean Corpuscular Volume 86.6 fl (80-100); Mean Platelet Volume 11.4 fl (7.4-10.4); Monocytes Absolute Auto 0.6 K/mm3 (0.1-0.6); Monocytes Percent Auto 7.5 % (2.6-8.5); Neutrophils Absolute Auto 4.5 K/mm3 (1.3-6.7); Neutrophils Percent Auto 55.7 % (45.5-73.1); Platelet Count Result 278 k/mm3 (150-375); Red Blood Count 5.44 M/mm3 (4.2-5.4); Red Cell Distribution Width 12.3 % (11.5-14.5); White Blood Count 8.2 K/mm3 (4.5-10.0)
[2024-12-16 00:32] LABS: Ammonia < 9 umol/L (9-30); Ethanol < 10 mg/dL (<10); Salicylate < 1.0 mg/dL (2-20)
[2024-12-16 00:34] LABS: Alanine Aminotransferase 31 U/L (6-35); Albumin Level 4.6 g/dL (3.5-5.1); Alkaline Phosphatase 119 U/L (38-126); Anion Gap 15 mmol/L (4-12); Aspartate Amino Transferase 26 U/L (14-36); Bilirubin,Total 0.9 mg/dL (0.2-1.3); Blood Urea Nitrogen 16 mg/dL (7-17); Calcium 9.6 mg/dL (8.4-10.2); Carbon Dioxide 21 mmol/L (22-30); Chloride 100 mmol/L (98-107); Creatine Kinase 23 U/L (30-135); Estimated Glomerular Filt Rate > 60; Glucose 327 mg/dL (65-110); Magnesium 2.2 mg/dL (1.6-2.3); Potassium 4.1 mmol/L (3.4-5.0); Sodium 136 mmol/L (137-145)
[2024-12-16] MEDS: SODIUM CHLORIDE 0.9% IV 1,000 ML 999 ML IV CONT (01:53)
[2024-12-16] MEDS: INSULIN GLARGINE (*BKC) 100 UNITS/ML 20 UNITS SUB-Q (01:54)
[2024-12-16 02:33] LABS: Add Urine Microscopic? NO; Appearance Urine Clear (Clear); Bilirubin Urine Negative (Negative); Blood Urine Negative (Negative); Color Urine Yellow (Yellow); Glucose Urine UA 2+ mg/dL (Negative); Ketones Urine Trace mg/dL (Negative); Leukocyte Esterase Ur Negative LEU/UL (Negative); Nitrate Urine Negative (Negative); Protein Urine Negative (Negative); Specific Grav Ur > 1.045 (1.001-1.035); Urobilinogen Urine 0.2 mg/dL (<2.0)
== END 2024-12-16 06:59 | disposition home or self-care (01) ==
PROVIDERS: Emergency Provider Student in an Organized Health Care Education/Training Program; PCP Family Medicine
DX: G25.2 Other specified forms of tremor (principal); E11.65 Type 2 diabetes mellitus with hyperglycemia; F41.9 Anxiety disorder, unspecified; D64.9 Anemia, unspecified
CPT/HCPCS: 36415; 70496; 70498; 72125; 80053; 80179; 81003; 82077; 82140; 82550; 83735; 84443; 85025; 96361; 96374; 99284; J1815; J3360; J7030; Q9967

== ENCOUNTER 2025-03-04 11:41 | Emergency (ER) | payer SELFPAY ==
--- NOTE | ~2025-03-04 | CT_ITS ---
EXAMINATION: CTA BRAIN/CAROTID DATE: 03/04/2025 13:39 INDICATION: Dizziness. Concern for stroke. TECHNIQUE: Computed tomographic angiography (CTA) of the head and neck was performed with 100 mL Omni paque-350 intravenous contrast. Multiplanar reconstructions and maximum intensity projection 3D-recon structions of the carotid arteries and of the intracranial arteries were created by the technologist on a separate workstation. Precontrast CT of the head was also obtained. Automated exposure control and iterative reconstruction technique were employed.The dose-length product was 1396.99 mGy-cm. COMPARISON: None. FINDINGS: Carotid arteries: Atherosclerotic calcific a cyst along the normal caliber aortic arch with no hematoma significant alysha nosis or dissection. There is a normal anatomic variant common origin of the innominate and left comm on carotid arteries. There is atherosclerotic plaque with 0% stenosis of the right and left carotid b ulbs relative to normal distal artery lumen diameter (NASCET criteria). Visualized upper lungs are cl ear. Mild cervical spondylosis. There are some heterotopic desiccation the paraspinal musculature pos terior to the lower cervical spine. Cervical soft tissues are unremarkable. Head: No acute intracranial hemorrhage, acute infarction or abnormal extra axial fluid collection. Ventricl es are normal and symmetric. No mass/mass effect. No abnormally enhancing brain lesions on the postco ntrast imaging. Changes of bilateral intraocular lens replacement. The orbits and mastoid air cells a re normal. Mild mucosal thickening in the bilateral ethmoid and maxillary sinuses. Intracranial arteries The left vertebral artery is dominant. There is nonhemodynamically significant atherosclerotic plaque with <50% stenosis at the bilateral carotid siphons. There is no hemodynamically significant stenosi s in the vertebral, basilar and internal carotid arteries. There are no aneurysms identified. Both A 1 and P1 segments are patent. There is a patent anterior communicating artery. Cerebral arterial arbo rization appears symmetric. IMPRESSION: 1. Small amount of atherosclerotic plaque with 0% stenosis of the right and left carotid bulbs relati ve to normal distal artery lumen diameter (NASCET criteria). 2. Normal brain with no acute intracranial process or abnormally enhancing brain lesions. 3. Unremarkable cerebral CT angiogram with no hemodynamically significant stenosis, thrombosis or ane urysm. Reviewed, dictated and finalized at location A. IMPRESSION: 1. Small amount of atherosclerotic plaque with 0% stenosis of the right and lef t carotid bulbs relative to normal distal artery lumen diameter (NASCET criteri a). 2. Normal brain with no acute intracranial process or abnormally enhancing brai n lesions. 3. Unremarkable cerebral CT angiogram with no hemodynamically significant steno sis, thrombosis or aneurysm.
--- NOTE | ~2025-03-04 | XR_ITS ---
EXAMINATION: XR chest 1V portable DATE: 03/04/2025 12:49 INDICATION: Stroke TECHNIQUE: frontal view of the chest was obtained. COMPARISON: None FINDINGS: The lungs are clear with no focal airspace opacities, pulmonary edema, pleural effusion or pneumothor ax. The cardiomediastinal silhouette is normal. Visualized bones and soft tissues are unremarkable. IMPRESSION: 1. No acute cardiopulmonary disease. Reviewed, dictated and finalized at location A.
--- OUTSIDE RECORDS SUMMARY | 2025-03-04 11:45 | XMS_ITS ---
Author Organization [facility] Address [address] [place] [address] Care Team Providers Care Ent Consultant Name Role Kanika Grady Primary Care Provider Social History Sex Assigned At : Social History Observation Description Sex Assigned At Female Encounters Encounter Location Date Provider Diagnosis [facility] [address] [place] [address] 02/21/2025 Kanika Conrad Plan Of Treatment Next Appt Details Provider Name:Thomas Borjas , 03/06/2025 10:00:00 AM, [address] [facility], [place], [address], Provider Name:Talat conway, 03/06/2025 10:20:00 AM, [address], [place], [address], Progress Notes * Keyur VILLARREALB:[birth year] (64 yo F)Acc No.[id number]:02/21/2025 Patient: Vamsi Gabby BELLA :1960 A ge:64 Y S ex:Female Address:[address] [place] [address], [address] * true * Date: Generated for Printi ng/Faxing/eTransmitting on: 0 03/04/2025 11:45 AM CDT
--- OUTSIDE RECORDS SUMMARY | 2025-03-04 11:45 | XMS_ITS | Data Portability ---
Author Organization [facility], Main Office Address [address] [place] [address] Care Team Providers Care Plant Wire Chief Name Role Phone NIRMAL MULLEN Revenue Accounting Manager Assessment Encounter Date Assessment Date Assessment LastModified [...] management, we will refer her to a scene painter, who may consider doing a cortisone injection. We will keep her on the same work restrictions. We will have her follow up pending recs from pain management.. [email or web address] Not available 12/02/2023 23:31:17 Plan of Treatment Reminders Order Date Submit Date Provider Last Modified By Organization Details Last Modified Time Details Appointments None recorded. Lab None recorded. Referral pain management referral - Pt is W/C 2023 [facility] [place] [address], [address], [place], [address], 4 12:50:40 physical therapist referral - [facility] 20[facility] 023 [facility], [address], [place], [address], 3 17:41:12 Procedures None recorded. Surgeries None recorded. Imaging None recorded. Medication Orders Mobic 15 mg tablet 2022 023 [email or web address] [id number], [address] [place], [place], [id number], 09:46:14 Patient TargetsNo targets recorded. Patient InstructionsNo [...] contr ast No observ ation record ed. [email or web address] Not Available 2022 17:04:50 08/24/20 23 XR, elbow No observ ation record ed. [email or web address] Not Available 2022 17:04:54 08/24/[address], pelvi s, w/o contr ast No observ ation record ed. [email or web address] Not Available 2022 17:04:59 Result Notes None recorded. Problems Name Problem SNOMED Code Status Onset Date Resolution Date Notes Provider Name and Address Organization Details Recorded Time Imaging of gastrointest inal tract abnormal 645481015 Active 2022 Not Available [facility] 01:47:44 Pain in sacrum 5586997254 Active 2022 Radha Callahan, ATC L null, [facility] [employer] 3 15:32:35 Low back pain 969721815 Active 2022 Anay caceres, [employer] [facility] [employer] 10:55:51 Problem Notes None recorded. Procedures Surgical History None recorded. Imaging Results Imaging Date Name Status LastModified by Organiz ation Details LastModified Time 08/24/2023 CT, cervical spine, w/o contrast completed [email or web address] Information not available 08/24/2023 17:04:50 08/24/2023 XR, elbow completed Information no t available 08/24/2023 17:04:54 08/24/2023 CT, pelvis, w/o contrast completed [email or web address] Information not available 08/24/2023 17:04:59 Procedure Notes None recorded. Medical Equipment None Reported. Allergies Allergen ID Allergen Name Allergen Category Reaction Reaction Severity Criticality Documentation Date Start Date Code Code System Note Provider Name and Address Organization Details Recorded Time 92075 Benadryl medicatio n rash severe Not available 01/15/2023 7 RxNorm Not Available [facility] 01:48:25 Medications Name Sig Start Date Stop [...] 1 TABLET BY MOUTH TWICE A DAY [id number] active Not Available Not Available No t [...] % 79 /min 14 /min 98 [degF] 73934.2 3 g 110 mm[Hg] 76 mm[Hg] Not Available [facility] 3 01:47:27 Date Recorded Body height Body mass index (BMI) Body weight Provider Name and Address Organization Details Last Updated DateTime 2023 147.32 cm 26.1 kg/m2 91993.05 g Radha Callahan ATC L [facility] [employer] 2023 15:30:16 Date Recorded Body height Body mass index (BMI) Body weight Pain severity - 0-10 verbal numeric rating [Score] - Reported Provider Name and Address Organization Details Last Updated DateTime 10/13/2023 147.32 cm 25.9 kg/m2 65163.45 g SCOTTY Forde [facility] [employer] 10/13/2023 11:44:45 Date Recorded Body height Body mass index (BMI) Body weight Provider Name and Address Organization Details Last Updated DateTime 12/02/2023 147.32 cm 26.1 kg/m2 29299.05 g Tere Alvarez CNA [facility] 12/02/2023 11:15:47 Social History Question Answer Notes LastModified by Organizat ion Details LastModified Time Tobacco Smoking Status Former Smoker Not Available [employer] 01/15/2023 01:47:04 What Is Your Level Of Alcohol Consumption? None [email or web address] Information not available 2023 Have You Recently Traveled Abroad? No [id number] Information not available 01/15/2023 Sex: Unknown Functional Status None recorded. Mental Status None recorded. Family History Relationship Description Onset Age of this Age Resolved Age Notes LastModified by Organization Details LastModified Time Father No current problems or disability [email or web address] [id number] Not available 01/15/2023 01:47:20 Mother No current problems or disability [email or web address] [id number] Not available 01/15/2023 01:47:20 Medical History Condition Response HIGH CHOLESTEROL / HYPERLIPIDEMIA Y BACK / NECK PROBLEMS USE OF BLOOD THINNERS Y DIABETES, TYPE Y Gynecological HistoryNo gynecological history recorded. Obstetrics History GPAL:G 0 P 0 0 0 0 Past Encounters Encounter ID Performer Location Encounter Start Date Encounter Closed Date Diagnosis/Indication Diagnosis SNOMED-CT Code Diagnosis ICD10 Code Diagnosis Note [id number] [facility] General Surgery [address] [address] 12/17/2022 00:00:00 12/17/2022 16:06:14 [id number] Mary [facility]oy NP [facility] [address] [place] [address] 2023 15:07:45 2023 16:12:31 Pain in sacrum 6689316924 M54.50 [id number] Mary [facility]oy NP [facility] [address] [place] [address] 10/13/2023 11:42:08 10/13/2023 12:12:18 [id number] Blade Canales MD [facility] [address] [place] [address] 12/02/2023 11:13:13 12/02/2023 11:30:14 Pain in sacrum 2908459534 M54.50 Health Concerns Section Related Observation LastModified by Organization Detai ls LastModified Time None Recorded Concern Status LastModified by Organization Details LastModified Time None Recorded Advance Directives Directive None Recorded Payers Encounter Date Sequence Insurance Name Policy Number Policy Abarca Covered Member ID Abarca Member ID Guarantor Name 2023 [employer] Gabby Jeff 10/13/2023 [employer] Gabby Jeff 12/02/2023 [employer] Gabby Jeff OBGyn Episode No OBEpisode recorded.
--- OUTSIDE RECORDS SUMMARY | 2025-03-04 11:45 | XMS_ITS | CONTINUITY OF CARE DOCUMENT ---
Author Name aurorachristophertrevon Address Unknown Organization [facility] Address [address] [place] [address] Phone [phone] Care Team Providers Care Thread Pulling Machine Attendant Name Role Phone Bruno Prado MD Unavailable [phone] Bruno Prado MD Unavailable [phone] Kanika Conrad MD Unavailable PROBLEMS Condition Status Date Provider Notes Cardiology examination active Bruno Burton Diabetes, Type 2 active Bruno Prado MD Hyperlipidemia active Bruno Prado MD Hypertension active Bruno Prado MD CHEST PAIN active Bruno Prado MD Shortness of breath active Bruno Prado MD ENCOUNTERS Date Type Provider Location Encounter Diag nosis - In-person encounter Office Visit Bruno Prado MD [facility] Cardiology examinationDiabetes, Type 2HyperlipidemiaHyperte nsionCHEST PAINShortness of breath VITAL SIGNS Date Observation Value Provider Body Mass Index (Ratio) 26.54 kg/m2 Pollo spears Omero blood pressure, diastolic 80 mm[Hg] Gisele nkLogic blood pressure, systolic 146 mm[Hg] Dione kLogbooker blood pressure, systolic 146 mm[Hg] Kenneth Farnsworth blood pressure, diastolic 80 mm[Hg] Tad Farnsworth blood pressure, cuff size regular Tad Farnsworth oxygen saturation, oximetry 97 % Gilberto Farnsworth pulse rate 71 /min Gilberto Farnsworth weight E&M 127 [lb_av] Gilberto Farnsworth height E&M 58 [in_i] Gilberto Farnsworth ALLERGIES Allergy Name Onset Date Reaction Criticality Status BENADRYL Rash High Criticality active HISTORY OF MEDICATION USE Medication Status Instructions Dates Provider Indications Com ments Semglee(insulin glarg-yfgn)Pen 100 unit/mL (3 mL) insulin pen active Gilberto Farnsworth OneTouch Verio test strips strip active USE TO TEST TWICE DAILY Gilberto Farnsworth lorazepam 0.5 mg tablet active TAKE 1 TABLET (0.5 MG) BY MOUTH DAILY NEEDED FOR ANXIETY Gilberto Farnsworth famotidine 40 mg tablet active Gilberto Farnsworth metformin (Glucophage XR) 500 mg tablet extended release 24 hr active Gilberto Farnsworth betamethasone dipropionate 0.05% cream active APPLY CREAM TOPICALLY TO RASH ON ARMS TWICE DAILY NEEDED Gilberto Farnsworth losartan 25 mg tablet active Gilberto Farnsworth atorvastatin 40 mg tablet active Gilberto Farnsworth SOCIAL HISTORY Date Observation Value Provider smoking status Never smoker Bhasakr Jamil INSURANCE PROVIDERS Payer name Policy type / Coverage type [place] red democrat ID [facility] [employer] [id number] ADVANCE DIRECTIVES Name Date DISCUSSED - NO DECISION MADE TREATMENT PLAN Date Name Performer Cardiology:Check ech o to r/o valvular disease Bhaskar Jamil Cardiology: H er updated medication list for this problem includes: Semglee(insulin Glarg-yfgn)pen 100 Unit/ml (3 Ml) Insulin Pen (Insulin glargine-yfgn) Metformin (glucophage Xr) 500 Mg Tablet Extended Release 24 Hr (Metformin (glucophage xr)) Losartan 25 Mg Tablet (Losartan) Bhaskar Jamil Cardiology: H er updated medication list for this problem includes: Atorvastatin 40 Mg Tablet (Atorvastatin) Bhaskar Jamil Cardiology: H er updated medication list for this problem includes: Losartan 25 Mg Tablet (Losartan) BP today: 146/80 Bhaskar Jamil Cardiology:epigastri c pain, feels like a burning r easonable to do nuclear exercise stress A CS r/o in ER Bhaskar Jamil Date Name Stress Exercise Card iolite Complete Echo HISTORY OF PROCEDURES Procedure Date Procedure Name Provider Procedure Notes S tatus EKG Bruno Prado MD completed
--- OUTSIDE RECORDS SUMMARY | 2025-03-04 11:45 | XMS_ITS ---
Author Organization [facility] Address [address] [place] [address] Care Team Providers Care Vice President [employer] Name Role Phone [place] Kanika Primary Care Provider Reason For Referral Reason Pt. calling in to sp eak with nurse regarding stressors at home, would benefit from CBT. Diagnosis 1 Depression (F32.9) Referral Organization [facility] Referring Provider First Name Kanika Referring Provider Last Name [place] Referring Provider Speciality [facility] Referred Provider Specialty Behavioral H ealt General Notes stevan Luis elham gonzales has an appointment with Dr. Borjas in person on 03/06/25 at 10am. I chatted with Gricelda and she said it would be OK for me to pass this one to you since you'll be on site and can chat with her in person! Thank you! Clinical Notes Janelle Anand 03/03/2025 03:14:01 PM >HERNAN called the client to discuss meeting with her after her appointment with Dr. Borjas on 03-06-25. Client asked me to email her a quick note with the meeting time. HN emailed the client and scheduled a 15 min slot to see her in person to address what resources or services she thinks would benefit her. Referral Priority Routine REASON FOR VISIT return call Social History Sex Assigned At : Social History Observation Description Sex Assigned At Female Problems Problem Type SNOMED Code ICD Code Onset Dates Problem Status W/U Status Risk Notes Problem Depression (488044989) Depression (F32.9) Active confirmed Encounters Encounter Location Date Provider Diagnosis [facility] [address] [place] [address] 02/27/2025 Kanika Conrad Depression F32.9 Assessments Encounter Date Diagnosis (ICD Code) Assessment Notes Treatment Notes Treatment Clinical Notes Section Notes 02/27/2025 Depression (ICD-10 - F32.9) Plan Of Treatment Referrals Referral Date Details 02/28/2025 02/28/2025, Pt. call ing in to speak with nurse regarding stressors at home, would benefit from CBT. Next Appt Details Provider Name:Thomas Borjas , 03/06/2025 10:00:00 AM, [address] [facility], [place], [address], Provider Name:Talat conway, 03/06/2025 10:20:00 AM, [address] [place] [address], [address], Progress Notes * Keyur VILLARREALB:[birth year] (64 yo F)Acc No.[id number]:02/27/2025 Patient: Vamsi Gabby BELLA :1960 A ge:64 Y S ex:Female Address:[address] [place] [address], [address] Subjective: * Chief Complaints: * R eturn call * Medical History: * Surgical History: * Hospitalization/Major Diagno stic Procedure: * Medications: Objective: * Vitals: * Physical Examination: Assessment: * Assessment: 1. D epression - F32.9 (Primary) Plan: * Treatment: * Procedure Codes: * true * Date: Generated for Printi ng/Faxing/eTransmitting on: 0 03/04/2025 11:45 AM CDT Consultation Request Notes Referral Date Referring Provider Referred Provider Not es 02/28/2025 Kanika Conrad , Pt. calling in to speak with nurse regarding stressors at home, would benefit from CBT.
--- OUTSIDE RECORDS SUMMARY | 2025-03-04 11:45 | XMS_ITS | Patient Health Record ---
Author Organization [facility] Address [address] [place] [address] Care Team Providers Care Cleaning Maid Name Role Phone Kanika Conrad Primary Care Provider [phone] Allergies No Known Allergies Results Component Value Reference Range Notes HIV Screen *HIV 1, 2 Ab, p24 Ag ([id number]) Reviewed date:01/12/2025 12:11:48 PM Interpretation: Performing Lab:[facility], [address] [place] [address], Phone - [phone], Director - [facility] Notes/Report: HIV Ab/p24 Ag Screen Non Reactive Non Reactive HIV-1/HIV-2 antibodies and HIV-1 p24 antigen were NOT detected. There is no laboratory evidence of HIV infection. HIV Negative Hemoglobin A1c* Reviewed date:01/12/2025 12:11:48 PM Interpretation: Performing Lab:[facility], [address] [facility], Phone - [phone], Director - [facility] Notes/Report: Hemoglobin A1c 12.5 4.8-5.6 % . Prediabetes: 5.7 - 6.4 Diabetes: >6.4 Glycemic control for adults with diabetes: <7.0 CBC With Differential/Platel et* Reviewed date:01/12/2025 12:11:48 PM Interpretation: Performing Lab:[facility], [address] [facility], Phone - [phone], Director - [facility] Notes/Report: WBC 7.0 3.4-10.8 x10E3/uL RBC 4.89 3.77-5.28 x10E6/uL Hemoglobin 15.0 11.1-15.9 g/dL Hematocrit 45.4 34.0-46.6 % MCV 93 79-97 fL MCH 30.7 26.6-33.0 pg MCHC 33.0 31.5-35.7 g/dL RDW 12.7 11.7-15.4 % Platelets 243 150-450 x10E3/uL Neutrophils 61 Not Estab. % Lymphs 29 Not Estab. % Monocytes 5 Not Estab. % Eos 4 Not Estab. % Basos 1 Not Estab. % Neutrophils (Absolute) 4.3 1.4-7.0 x10E3/uL Lymphs (Absolute) 2.0 0.7-3.1 x10E3/uL Monocytes(Absolute) 0.4 0.1-0.9 x10E3/uL Eos (Absolute) 0.3 0.0-0.4 x10E3/uL Baso (Absolute) 0.1 0.0-0.2 x10E3/uL Immature Granulocytes 0 Not Estab. % Immature Grans (Abs) 0.0 0.0-0.1 x10E3/uL Lipid Panel* Reviewed date:01/12/2025 12:11:48 PM Interpretation: Performing Lab:[facility] [place], [address] [place] [address], Phone - [phone], Director - [facility] Notes/Report: Cholesterol, Total 146 100-199 mg/dL Triglycerides 237 0-149 mg/dL HDL Cholesterol 37 >39 mg/dL VLDL Cholesterol Ilia 39 5-40 mg/dL LDL Chol Calc ([facility]) 70 0-99 mg/dL CMP 14 Comprehensive Metabol ic Panel* Reviewed date:01/12/2025 12:11:49 PM Interpretation: Performing Lab:[facility] [place], [address] [place] [address], Phone - [phone], Director - [facility] Notes/Report: Glucose 358 70-99 mg/dL BUN 16 8-27 mg/dL Creatinine 0.63 0.57-1.00 mg/dL eGFR 100 >59 mL/min/1.73 BUN/Creatinine Ratio 25 12-28 Sodium 135 134-144 mmol/L Potassium 4.1 3.5-5.2 mmol/L Chloride 101 96-106 mmol/L Carbon Dioxide, Total 20 20-29 mmol/L Calcium 9.9 8.7-10.3 mg/dL Protein, Total 7.1 6.0-8.5 g/dL Albumin 4.3 3.9-4.9 g/dL Globulin, Total 2.8 1.5-4.5 g/dL Bilirubin, Total 0.3 0.0-1.2 mg/dL Alkaline Phosphatase 110 44-121 IU/L AST (SGOT) 22 0-40 IU/L ALT (SGPT) 29 0-32 IU/L TSH Rfx on Abnormal to Free T4 Reviewed date:01/12/2025 12:11:49 PM Interpretation: Performing Lab:[facility] [place], [address] [facility], Phone - [phone], Director - Elise Notes/Report: TSH 0.336 0.450-4.500 uIU/mL T4,Free (Direct) 1.46 0.82-1.77 ng/dL Rapid Plasma Reagin (RPR) Te st With Reflex to Quantitative RPR and Confirmatory Treponema pallidum Antibodies Reviewed date:01/12/2025 12:11:49 PM Interpretation: Performing Lab:[facility] [place], [address] [facility], [place], Phone - [phone], Director - [facility] Notes/Report: RPR Non Reactive Non Reactive Reason For Referral Reason Colon cancer screeni ng Diagnosis 1 Screening for colon cancer (Z12.11) Referral Organization [facility] Referring Provider First Name Kanika Referring Provider Last Name Short Referring Provider [facility] robert Referred Provider Specialty Gastroentero logy Clinical Notes [facility], [address] [place] [address], [place]. [address], , Referral Priority Routine Reason Hx of HPV Diagnosis 1 History of HPV infec tion (Z86.19) Referral Organization [facility] Referring Provider First Name Kanika Referring Provider Last Name Short Referring Provider [facility] icilakeisha Referred Provider [facility] Gynecology Referred Provider Specialty Clerical Adviser Clinical Notes [facility] PSYCHIATRIC LPN, [address], [address], [place]. [address], , Referral Priority Routine Reason ac1 12.5. Long-term, uncontrolled DM2 w/ insulin Diagnosis 1 Uncontrolled diabete s mellitus type 2 without complications, unspecified termite treater helper insulin use status (E11.65) Referral Organization [facility] Referring Provider First Name Kanika Referring Provider Last Name Short Referring Provider [facility] Referred Provider Specialty Endocrinolog y Clinical Notes [facility], [address] [place] [address], [place]. [address], , Referral Priority Routine Reason Pt. interested in IN -SHAPE program Diagnosis 1 Obesity (E66.9) Referral Organization [facility] Referring Provider First Name Aknika Referring Provider Last Name Short Referring Provider [facility] Referred Provider Specialty Nutrition General Notes Karolina Sher 12:51:05 PM > Health mentor reviewing chart(s) for requirements of InSHAPE program., Karolina Sher 02/03/2025 03:33:14 PM > Gabby will need to be opened in Tier and a IMCANS completed before first appointment for InSHAPE. Clinical Notes Karolina Sher 03:34:40 PM > Called Gabby. Left message with my contact information for her to return my phone call., Karolina Sher 02/07/2025 11:15:29 AM > Called Gabby. Call went right to . Left message with my contact information for her to return my phone call., Karolina Sher 02/07/2025 12:17:04 PM > Gabby returned my phone call. Spoke with Gabby and she stated she wanted to wait on the program at this time. Referral Priority Routine Reason Pt. calling in to sp eak with nurse regarding stressors at home, would benefit from CBT. Diagnosis 1 Depression (F32.9) Referral Organization [facility] Referring Provider First Name Kanika Referring Provider Last Name Short Referring Provider [facility] Referred Provider Specialty Behavioral H ealth General Notes Janelle, this clien t has an appointment with Dr. Borjas in person on 03/06/25 at 10am. I chatted with Gricelda and she said it would be OK for me to pass this one to you since you'll be on site and can chat with her in person! Thank you! Clinical Notes Janelle Anand 03/03/2025 03:14:01 PM >HN called the client to discuss meeting with her after her appointment with Dr. Borjas on 03-06-25. Client asked me to email her a quick note with the meeting time. HN emailed the client and scheduled a 15 min slot to see her in person to address what resources or services she thinks would benefit her. Referral Priority Routine Medications Medication SIG (Take, Route, Frequency, Duration) Notes Start Date End Date Status Aspirin Low Dose 81 MG TAKE 1 TABLET BY MOUTH EVERY DAY FOR 30 DAYS for 30 Not-Taking Gabapentin 100 MG TAKE 2 CAPSULES BY MOUTH ONCE DAILY for 15 Not-Taki ng TEST STRIPS, FORMULARY ANY DIRECTED VIA METER twice a day for 30 days 03/19/2022 Not-Taki ng Dexcom G7 Sensor - WILL USE 3 SENSORS P ER MONTH TO CHECK BLOOD SUGAR CONTINUOUSLY for 30 Days Not-Taking hydrOXYzine HCl 10 MG TAKE 1 TABLET BY M OUTH THREE TIMES DAILY NEEDED FOR ITCHING Oral for 10 Days Active Losartan Potassium 25 MG 1 tablet Orally Once a day for 30 days Active metFORMIN HCl 500 MG TAKE 1 TABLET BY MO UTH TWICE A DAY WITH MEALS for 30 Not-Taking Atorvastatin Calcium 40 MG 1 tablet Orally Once a day for 30 days Active Januvia 100 MG TAKE 1 TABLET BY PENNIE TH EVERY DAY FOR 30 DAYS for 30 Not-Taking Atorvastatin Calcium 40 MG TAKE 1 TABLET BY MOUTH EVERY DAY FOR 30 DAYS for 30 Not-Taking Famotidine 40 MG TAKE 1 TABLET Orally Once a day for 30 days As needed Active metFORMIN HCl ER 500 MG 1 tablet with ev ening meal Orally Once a day for 30 days 01/12/2025 Active metformin as directed Unknown Betamethasone Valerate 0.1 % APPLY TO AFFECTED AREA ONCE DAILY FOR 30 DAYS Externally Twice a day as needed for 30 days Active Betamethasone Dipropionate 0.05 % 1 application as needed Externally Twice a day for 14 days 04/01/2022 Not-Taking Lantus SoloStar 100 UNIT/ML 20 units every evening Subcutaneous daily for 30 days Active Nystatin 559911 UNIT/GM 1 application Externally Twice a day for 30 days 03/19/2022 Not-Taking Social History Tobacco Use: Social History Observation Description Date Details (start date - stop date) Current Smoker NA - NA Sex Assigned At : Social History Observation Description Sex Assigned At Female PRAPARE Question Answer Notes What is your [...] phone, visiting friends or family, going to yazidism or club meetings) More than 5 times a week How stressed are you? Stress is when someone feels tense, nervous, anxious, or can\t sleep at night because their mind is troubled A little bit In the past year have you sp ent more than 2 nights in a row in a intermediate, senior care, intermediate center, or juvenile correctional facility? I choose not to answer this question Are you a refugee? No What country are you from? Country Other than the [place] (please write in notes) Please specify: [facility] Do you feel physically and e motionally safe where you currently live? Yes In the past year, have you b een afraid of your partner or ex-partner? No PRAPARE Score: 9 Tobacco Control (Standard) Question Answer Notes Tobacco use: Current smoker Problems Problem Type SNOMED Code ICD Code Onset Dates Problem Status W/U Status Risk Notes Problem Tobacco user (098177540) Nicotine dependence, unspecified, uncomplicated (F17.200) Active confirmed Problem Hypertension (70322374) Hypertension (I10) Active confirmed Problem Gastroesophageal reflux disease (394526938) GERD (gastroesophagea l reflux disease) (K21.9) Active confirmed Problem Depression (804920584) Depression (F32.9) Active confirmed Problem Obesity (681748520) Obesity (E66.9) Active conf irmed Problem Type II diabetes mellitus without complication (073733250) Diabetes (E11.9) Active confirmed Problem Back pain (016719141) Back pain (M54.9) Active confirmed Problem Breast cancer screening (378986011) Breast cancer screening (Z12.39) Active confirmed Problem Diabetes mellitus (27270739) Diabetes mellitus (E11.9) Active confirmed Problem Glucosuria (26706842) Glucosuria (R81) Active confirmed Problem Pain (41956269) Pain (R52) Active confirmed Problem Hyperlipidaemia (60584022) Hyperlipemia (E78.5) Active confirmed Problem Seasonal allergy (237105861) Seasonal allergies (J30.2) Active confirmed Problem Laboratory test result abnormal (501623627) Abnormal laboratory test result (R89.9) Active confirmed Problem Gynecological examination normal (111576671219638) Well woman exam with routine gynecological exam (Z01.419) Active confirmed Problem Abdominal discomfort (96016246) Abdominal discomfort (R10.9) Active confirmed Problem Hyperglycemia due to type 2 diabetes mellitus (025897182834662) Uncontrolled diabetes mellitus type 2 without complications, unspecified termite treater helper insulin use status (E11.65) Active confirmed Problem CT of abdomen abnormal (33726603314140720) Abnormal CT of the abdomen (R93.5) Active confirmed Vital Signs Heart Rate 74 /min 02/01/2025 Temperature 98.6 degrees Fahrenheit 02/01/2025 Respiratory Rate 16 /min 02/01/2025 Oximetry 98 % 02/01/2025 Blood pressure diastolic 62 mm Hg 02/01/2025 Height 9bt87ud in 02/01/2025 Blood pressure systolic 118 mm Hg 02/01/2025 Weight 128.8 lbs 02/01/2025 BMI 26.01 kg/m2 02/01/2025 Encounters Encounter Location Date Provider Diagnosis [address] [place] [address] 01/11/2025 Kanika Conrad [facility] care wi th new doctor, encounter for Z71.89 ; Screening for deficiency anemia Z13.0 ; Screening for metabolic disorder Z13.228 ; Screening for diabetes mellitus Z13.1 ; Screening for thyroid disorder Z13.29 ; Screening for hyperlipidemia Z13.220 ; Nutritional counseling Z71.3 ; Exposure to potential infection Z20.9 ; History of HPV infection Z86.19 ; Screening for colon cancer Z12.11 and Diabetes mellitus E11.[address] [place] [place] [address] 01/11/2025 Kanika Conrad Exposure to potentia l infection Z20.9 ; Screening for diabetes mellitus Z13.1 ; Screening for deficiency anemia Z13.0 ; Screening for hyperlipidemia Z13.220 ; Screening for metabolic disorder Z13.228 and Screening for thyroid disorder Z13.[address] [place] [address] 02/01/2025 Kanika Conrad Diabetes E11.9 ; Follow-up exam Z09 ; Abnormal laboratory test result R89.9 and Obesity E66.9 [facility] [address] [place] [address] 02/07/2025 Kanika Conrad [address] [place] [address] 02/10/2025 Kanika Conrad [facility] [address] [place] [address] 01/11/2025 Kanika Conrad Diabetes mellitus E11.[address] [place] [address] 01/12/2025 Kanika Conrad Uncontrolled diabete s mellitus type 2 without complications, unspecified termite treater helper insulin use status E11.65 ; Subclinical hypothyroidism E03.9 ; Hyperlipidemia E78.5 and Diabetes mellitus E11.[address] [place] [address] 01/18/2025 Kanika Conrad [address] [place] [address] 01/24/2025 Kanika Conrad [address] [place] [address] 01/27/2025 Kanika Conrad [address] [place] [address] 01/30/2025 Kanika Conrad [facility] [address] [place] [address] 01/30/2025 Kanika Conrad [address] [place] [address] 01/30/2025 Kanika Conrad [address] [facility] [place] [address] 01/30/2025 Kanika Conrad GERD (gastroesophage al reflux disease) K21.9 [facility] [address] [place] [address] 02/20/2025 Kanika Conrad [place] [address] [place] [address] 02/21/2025 Kanika Conrad [facility] [place] [address] 02/27/2025 Kanika Conrad Depression F32.9 Assessments Encounter Date Diagnosis (ICD Code) Assessment Notes Treatment Notes Treatment Clinical Notes Section Notes 02/27/2025 Depression (ICD-10 - F32.9) 01/30/2025 GERD (gastroesophageal reflux disease) (ICD-10 - K21.9) 02/01/2025 Diabetes (ICD-10 - E11.9) Referral placed for endo. Pt. given copy of referral at today's visit and encouraged to call today 02/01/2025 Follow-up exam (ICD-10 - Z09) 01/11/2025 Diabetes mellitus (ICD-10 - E11.9) 01/11/2025 Establishing care with new doctor, encounter for (ICD-10 - Z71.89) 01/11/2025 Exposure to potential infection (ICD-10 - Z20.9) 01/11/2025 Screening for deficiency anemia (ICD-10 - Z13.0) 01/12/2025 Subclinical hypothyroidism (ICD-10 - E03.9) 01/12/2025 Uncontrolled diabetes mellitus type 2 without complications, unspecified senior care insulin use status (ICD-10 - E11.65) 01/12/2025 Hyperlipidemia (ICD-10 - E78.5) 01/11/2025 Screening for diabetes mellitus (ICD-10 - Z13.1) 01/11/2025 Screening for metabolic disorder (ICD-10 - Z13.228) 02/01/2025 Abnormal laboratory test result (ICD-10 - R89.9) 02/01/2025 Obesity (ICD-10 - E66.9) 01/11/2025 Screening for diabetes mellitus (ICD-10 - Z13.1) 01/11/2025 Screening for deficiency anemia (ICD-10 - Z13.0) 01/12/2025 Diabetes mellitus (ICD-10 - E11.9) 01/11/2025 Screening for hyperlipidemia (ICD-10 - Z13.220) 01/11/2025 Screening for thyroid disorder (ICD-10 - Z13.29) 01/11/2025 Screening for hyperlipidemia (ICD-10 - Z13.220) 01/11/2025 Screening for metabolic disorder (ICD-10 - Z13.228) 01/11/2025 Screening for thyroid disorder (ICD-10 - Z13.29) 01/11/2025 Nutritional counseling (ICD-10 - Z71.3) 01/11/2025 Exposure to potential infection (ICD-10 - Z20.9) 01/11/2025 History of HPV infection (ICD-10 - Z86.19) 01/11/2025 Screening for colon cancer (ICD-10 - Z12.11) 01/11/2025 Diabetes mellitus (ICD-10 - E11.9) CancelRx Response got Denied on 2025-01-11 17:58:38 for 'Lantus SoloStar 100 UNIT/ML Solution Pen-injector'Pha rmacy Notes: Prescription not found. Contact Pharmacy by other means 01/11/2025 Other Patient may self-administe r their own medications or may self-administe r their own oral medications per [facility] Protocol. 02/01/2025 Other Patient may self-administe r their own medications or may self-administe r their own oral medications per [facility] Protocol. Plan Of Treatment Pending Test Test Name Order Date Xray : Spines, cervical 2 views 12/25/19 Xray : Thoracic spine 2 views 12/25/2022 Xray : LS Spine 12/25/2022 Mammogram Breast - Bilateral Diagnostic 11/13/2022 Next Appt Details Provider Name:Thomas Borjas , 03/06/2025 10:00:00 AM, [address] [place], [address], Provider Name:Talat conway, 03/06/2025 10:20:00 AM, [address], [address], Medical (General) History Medical History History ICD Code diabetes type 2 hyperlipidemia GERD Surgical History Surgery Date(Month/Year) C section 1992 appendectomy 1998 Hospitalization History Reason Date(Month/Year) appendectomy 1998 Child 1992
--- OUTSIDE RECORDS SUMMARY | 2025-03-04 11:45 | XMS_ITS ---
Author Organization [facility] Address [address] [place] [address] Care Team Providers Care Information Systems Operator Name Role Phone Kanika Conrad Primary Care Provider [phone] REASON FOR VISIT follow-up hospitalization Social History Sex Assigned At : Social History Observation Description Sex Assigned At Female Encounters Encounter Location Date Provider Diagnosis [address] [address] 02/22/2025 Kanika Conrad Plan Of Treatment Next Appt Details Provider Name:Thomas Borjas , 03/06/2025 10:00:00 AM, [address] [place] [address], [address], Provider Name:Talat conway, 03/06/2025 10:20:00 AM, [address] [place] [address], [address], Progress Notes * Keyur VILLARREALB:[birth year] (64 yo F)Acc No.[id number]:02/22/2025 UNLOCKED PROGRESS NOTE Progress Note Patient: Vamsi Gabby BELLA Provider: Kaz Conrad APRN :1960 A ge:64 Y S ex:Female Date:02/22/2025 Address:[address] [place] [id number] Subjective: * Chief Complaints: * 1 . Follow-up hospitalization. * Medical History: Objective: * Vitals: Assessment: Plan: * Treatment: * * Electronic signature of Gisela Conrad , [id number] on 03/04/2025 at 11:45 AM CDT Sign off status: Pending * Provider: Kaz Conrad APRN Date: 0 02/22/2025 Generated for Simon koch/Zachary/Angel on: 0 03/04/2025 11:45 AM CDT
--- OUTSIDE RECORDS SUMMARY | 2025-03-04 11:46 | XMS_ITS | Clinical Summary ---
Author Organization [facility] Address [address] [address] Phone Care Team Providers Care Block Bolter Mule Operator Name Role Phone Thomas Borjas MD Primary Care Provider [phone] Allergies Active Allergy Reactions Criticality Noted Date Comments Diphenhydramine Rash,Itching 01/26/2025 Medications famotidine (PEPCID) 40 MG Tablet Take 40 mg by mouth daily. Discontin ued(Patie nt Discharge ) atorvastatin (LIPITOR) 40 MG Tablet Take 40 mg by mouth daily. Discontin ued(Patie nt Discharge ) losartan (COZAAR) 25 MG Tablet Take 25 mg by mouth every morning. Discontin ued(Patie nt Discharge ) Multiple Vitamin (MULTI-VITAMIN PO) Take by mouth. Discontin ued(Patie nt Discharge ) Cyanocobalamin (VITAMIN B12 PO) Take by mouth daily. Discontin ued(Patie nt Discharge ) [place]-3 Fatty Acids (FISH OIL PO) Take by mouth daily. Discontin ued(Patie nt Discharge ) aspirin EC 81 MG Tablet Delayed Response Take 81 mg by mouth daily. Discontin ued(Patie nt Discharge ) MAGNESIUM PO Take by mouth daily. Discontin ued(Patie nt Discharge ) Cholecalcifero l (VITAMIN D3 PO) Take by mouth daily. 025 Discontin ued(Patie nt Discharge ) Ascorbic Acid (VITAMIN C PO) Take by mouth daily. 03/25/2 025 Discontin ued(Patie nt Discharge ) ASHWAGANDHA PO Take by mouth daily. 025 Discontin ued(Patie nt Discharge ) Coenzyme Q10 (COQ10 PO) Take by mouth daily. 025 Discontin ued(Patie nt Discharge ) insulin glargine (Lantus) 100 UNIT/ML Solution 20 Units by Subcutaneous route nightly. 025 Discontin ued(Patie nt Discharge ) metFORMIN (GLUCOPHAGE) 500 MG Tablet Take 1,000 mg by mouth 2 times daily (with meals). 025 Discontin ued(Patie nt Discharge ) LUTEIN PO Take by mouth daily. 025 Discontin ued(Patie nt Discharge ) Encounters Date Type Department Care Team Description 01/26/2025 Travel from Last 3 Months Family History Medical History Relation Name Comments Alzheimer's Disease Mother Heart Disease Paternal Aunt Relation Name Status Comments Father unknown Mother Paternal Aunt Social History Tobacco Use Types Packs/Day Years Used Date Smoking Tobacco: Former Cigarettes Smokeless Tobacco: Never Tobacco Cessation:Counseling Given: Not Answered Alcohol Use Standard Drinks/Week Comments Not Currently 0 (1 standard drink = 0.6 oz pur e alcohol) Comments Unknown Sex and Gender Information Value Date Recorded Sex Assigned at Not on file 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 Gender Identity Not on file Sexual Orientation Not on file Last Filed Vital Signs Vital Sign Reading Time Taken Comments Blood Pressure - - Pulse - - Temperature - - Respiratory Rate - - Oxygen Saturation - - Inhaled Oxygen Concentration - - Weight 56.7 kg (125 lb) 01/26/2025 10:13 AM CDT Height 149.9 cm (4' 11 ) 01/26/2025 10:13 AM CDT Body Mass Index 25.25 01/26/2025 10:13 AM CDT Plan of Treatment Upcoming Encounters Date Type Department Care Team (Late st Contact Info) Description 03/16/2025 2:30 PM CDT Office Visit [facility] - Endocrinology - [address] [place] [address] Ruth Rayo MD [address] [address] Health Maintenance Due Date Last Done Comments Hepatitis C Virus (HCV) Screening 1960 Mammogram 1960 TdaP Immunization 1960 Pap Smear 1983 Cervical Cancer Screening (CCS) 1992 HPV/Cotest 1992 Colonoscopy 2007 Colorectal Cancer Screening 2007 Cologuard 2012 Immunochemical Fecal Occult Blood 2012 Pneumococcal Immunization (5 0+ years) (1 of 1 - PCV) 2012 Zoster Immunization (1 of 2) 2012 Influenza Immunization (#1) 2024 09/11/2022 SARS-COV-2 Immunization ( - 2023- season) 2024 Respiratory Syncytial Virus (RSV) Immunization (Adult) (1 - 1-dose 75+ series) 2037 Hepatitis B Immunization Aged Out No longer eligible based on patient's age to complete this topic Meningococcal Immunization (ACWY) Aged Out No longer eligible based on patient's age to complete this topic Rotavirus Immunization Aged Out No lo nger eligible based on patient's age to complete this topic Insurance [employer] Care Teams Block Bolter Mule Operator Relationship Specialty Start Date End Date Thomas Borjas MD [address] [place] [address] PCP - General Internal Medicine 01/13/25
[2025-03-04 11:47] VITALS: BP 168/71; PULSE 88; RESP 16; TEMP 36.8; O2SAT 100
--- NOTE | 2025-03-04 12:16 | PC.NURSE ---
Pt not speaking to staff. When asked pt if she can open her mouth she nods her head no and does not attempt. Moving all extremities well without deficit.
--- NOTE | 2025-03-04 12:25 | ECG_ITS ---
Test Date: 2025-03-04 12:41:29 Measurements Intervals [place] Rate: 81 P: 60 [place]: 178 QRS: 49 QRSD: 74 T: 27 QT: 374 QTc: 435 Interpretive Statements SINUS RHYTHM MINIMAL Q WAVES- INFERIOR LEADS BORDERLINE ST-T WAVE ABNORMALITY- INFERIOR LEADS BASELINE ARTIFACT- I, II, III, AVR, AVL, AVF, V1-V6 BORDERLINE ECG No previous ECG available for comparison Electronically Signed On 03-04-2025 14:28:36 CDT by Norm Adkins D.O.
--- OUTSIDE RECORDS SUMMARY | 2025-03-04 12:28 | XMS_ITS | Clinical Summary ---
Author Organization [facility] Address [address] [address] Phone Care Team Providers Care Torch Shearer Name Role Phone Thomas Borjas MD Primary Care Provider [phone] Allergies Active Allergy Reactions Criticality Noted Date [...] mouth daily. 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
--- OUTSIDE RECORDS SUMMARY | 2025-03-04 12:28 | XMS_ITS | CONTINUITY OF CARE DOCUMENT ---
Author Name aurorachristophertrevon Address Unknown Organization [facility] Address [address] [place] [address] Phone [phone] Care Team Providers Care Retail Sales Teammate Name Role Phone Bruno Prado MD Unavailable [phone] Bruno Prado MD Unavailable [phone] Kanika Conrad MD Unavailable [phone] PROBLEMS Condition Status Date Provider Notes Cardiology examination active Bruno Burton Diabetes, Type 2 active Bruno Prado MD Hyperlipidemia active Bruno Prado MD Hypertension active Bruno Prado MD CHEST PAIN active Bruno Prado MD Shortness of breath active Bruno Prado MD ENCOUNTERS Date Type Provider Location Encounter Diag nosis - In-person encounter Office Visit Bruno Prado MD [place] [facility] Cardiology examinationDiabetes, Type 2HyperlipidemiaHyperte nsionCHEST PAINShortness [...] Observation Value Provider smoking status Never smoker Bhaskar Jamil INSURANCE PROVIDERS Payer name Policy type / Coverage type [place] red republican ID [facility] [employer] [id number] ADVANCE DIRECTIVES Name Date DISCUSSED - NO [...]
[2025-03-04 12:41] LABS: Basophils Absolute Auto 0.1 K/mm3 (0.0-0.1); Eosinophils Absolute Auto 0.1 K/mm3 (0-0.3); Eosinophils Percent Auto 1.2 % (0-4.4); Hematocrit 45.9 % (37.0-47.0); Hemoglobin 15.1 g/dL (12.0-15.0); Immature Granulocyte Absolute 0.01 K/mm3 (0.00-0.031); Immature Granulocyte Percent A 0.2 % (0-0.5); Lymphocytes Absolute Auto 1.41 K/mm3 (0.9-3.2); Lymphocytes Percent Auto 23.4 % (18.3-44.2); Mean Corpuscular HGB Conc 32.9 g/dl (32-36); Mean Corpuscular Hemoglobin 29.8 pg (26-34); Mean Corpuscular Volume 90.5 fl (80-100); Mean Platelet Volume 10.8 fl (7.4-10.4); Monocytes Absolute Auto 0.4 K/mm3 (0.1-0.6); Neutrophils Absolute Auto 4.1 K/mm3 (1.3-6.7); Neutrophils Percent Auto 67.2 % (45.5-73.1); Platelet Count Result 258 k/mm3 (150-375); Red Blood Count 5.07 M/mm3 (4.2-5.4)
--- NOTE | 2025-03-04 12:49 | PC.NURSE ---
Pt is now talking with encouragement. Answers all questions appropriately.
[2025-03-04 12:52] LABS: Alanine Aminotransferase 31 U/L (6-35); Albumin Level 4.6 g/dL (3.5-5.1); Alkaline Phosphatase 106 U/L (38-126); Anion Gap 11 mmol/L (4-12); Aspartate Amino Transferase 28 U/L (14-36); Bilirubin,Total 0.7 mg/dL (0.2-1.3); Blood Urea Nitrogen 13 mg/dL (7-17); Calcium 9.1 mg/dL (8.4-10.2); Carbon Dioxide 26 mmol/L (22-30); Chloride 102 mmol/L (98-107); Estimated CRCL calculation 70 ml/min; Estimated Glomerular Filt Rate > 60; Glucose 280 mg/dL (65-110); Potassium 3.9 mmol/L (3.4-5.0); Sodium 139 mmol/L (137-145)
[2025-03-04 12:55] VITALS: BP 160/74; PULSE 81; RESP 18; O2SAT 100
[2025-03-04 12:55] LABS: Partial Thromboplastin Time 25.5 Seconds (22.3-36.8); Prothrombin Time 13.2 Seconds (11.1-14.7)
[2025-03-04 13:04] LABS: Troponin I < 0.012 ng/mL (0.000-0.034)
--- NOTE | 2025-03-04 13:43 | ED_ITS ---
HPI - General Adult General Chief complaint: Neuro Symptoms/Deficit Stated complaint: Unable to speak since waking @ 0800 Time Seen by Provider: 03/04/25 12:17 History of Present Illness HPI narrative: 64-year-old female presenting to the emergency department for evaluation for not speaking. Patient did have a verbal argument with her last night. She states her has been drinking allan daily and she confronted him on this and when her friend checked on her today she found that she was not speaking. Upon arrival emergency department patient was encouraged to speak and she did speak. Patient was alert orientated and able to communicate the verbal argument regarding her friend last night. Patient has no focal neuro norm allergy. Patient does have a baseline tremor and this is unchanged per her friend. Related Data Allergies Allergy/AdvReac Type Severity Reaction Status Date / Time diphenhydramine Allergy Itching Verified 03/04/25 11:43 Review of Systems 2 Review of Systems: All systems reviewed & are unremarkable except as noted in HPI and below PMFSH Past Medical History Medical History Insulin dependent diabetes mellitus Social History Social History (Updated 12/16/24 @ 19:58 by Jessica Hui MD) Alcohol intake: former Alcohol use details: quit years ago Living arrangements: with family Additional living arrangements comments: Spouse Exam 2 Narrative: APPEARANCE: Well appearing, no pain, no distress, well-nourished. HEAD: normocephalic, atraumatic. EYES: PERRLA/EOMI, conjunctivae clear. NOSE: Normal no drainage EARS:TMS clear with good light reflex. THROAT: Pharynx clear, no exudate. NECK: Supple. No adenopathy, no masses. RESPIRATORY: Airway patent, respirations nonlabored. Clear to auscultation bilaterally, no rales, rhonchi, wheezing. CARDIOVASCULAR: Regular rate and rhythm without murmurs rubs or gallops. ABDOMINAL: Soft, nontender, nondistended, normal bowel sounds MUSCULOSKELETAL: Moves all extremities. Strength/ROM intact, No edema, No calf tenderness. NEURO: Alert. Cranial nerves II through XII intact. Good gait. Good coordination SKIN: Warm, dry. Normal Color Course Vital Signs Vital signs: Vital Signs Temperature 98.2 F 03/04/25 11:47 Pulse Rate 88 03/04/25 11:47 Respiratory Rate 16 03/04/25 11:47 Blood Pressure 168/71 H 03/04/25 11:47 Pulse Oximetry 100 03/04/25 11:47 Temperature 98.2 F 03/04/25 11:47 Pulse Rate 73 03/04/25 15:48 Respiratory Rate 18 03/04/25 15:48 Blood Pressure 118/65 03/04/25 15:48 Pulse Oximetry 99 03/04/25 15:48 Medical Decision Making MDM Narrative Medical decision making narrative: 64-year-old female presents to the emergency department for evaluation for increased anxiety and decreased speaking. Upon arrival to the emergency department patient was able to speak. Patient had a negative workup including a being afebrile without leukocytosis and hemoglobin 15.1. INR is 1.0. No acute abnormalities on her CMP other than elevated blood glucose troponin was negative. CTA was negative for acute infarct. Patient was treated with 0.5 mg of IV Ativan and patient states she does feel improved. Patient is back to her normal baseline. Patient and friend are requesting to be discharged home. Differential Diagnosis Differential Diagnosis: Conversion disorder, anxiety, CVA, TIA Vital Signs Vital Signs: Vital Signs Temperature 98.2 F 03/04/25 11:47 Pulse Rate 88 03/04/25 11:47 Respiratory Rate 16 03/04/25 11:47 Blood Pressure 168/71 H 03/04/25 11:47 Pulse Oximetry 100 03/04/25 11:47 Temperature 98.2 F 03/04/25 11:47 Pulse Rate 73 03/04/25 15:48 Respiratory Rate 18 03/04/25 15:48 Blood Pressure 118/65 03/04/25 15:48 Pulse Oximetry 99 03/04/25 15:48 Lab Data Lab results reviewed: Yes I reviewed the patient's lab results. 03/04/25 12:35 03/04/25 12:35 Labs: Lab Results 03/04/25 Range/Units 12:35 WBC 6.0 (4.5-10.0) K/mm3 RBC 5.07 (4.2-5.4) M/mm3 Hgb 15.1 H (12.0-15.0) g/dL Hct 45.9 (37.0-47.0) % MCV 90.5 (80-100) fl MCH 29.8 (26-34) pg MCHC 32.9 (32-36) g/dl RDW 12.0 (11.5-14.5) % Plt Count 258 (150-375) k/mm3 MPV 10.8 H (7.4-10.4) fl Immature Gran % (Auto) 0.2 (0-0.5) % Neut % (Auto) 67.2 (45.5-73.1) % Lymph % (Auto) 23.4 (18.3-44.2) % [place] % (Auto) 7.0 (2.6-8.5) % Eos % (Auto) 1.2 (0-4.4) % Baso % (Auto) 1.0 (0.2-1.2) % Lymph # (Auto) 1.41 (0.9-3.2) K/mm3 [place] # (Auto) 0.4 (0.1-0.6) K/mm3 Eos # (Auto) 0.1 (0-0.3) K/mm3 Baso # (Auto) 0.1 (0.0-0.1) K/mm3 Abs Immat Gran (auto) 0.01 (0.00-0.031) K/mm3 Absolute Neuts (auto) 4.1 (1.3-6.7) K/mm3 Absolute Nucleated RBC 0.000 (0.0-0.012) K/mm3 Nucleated RBC % 0.0 (0.0-0.2) % PT 13.2 (11.1-14.7) Seconds INR 1.0 APTT 25.5 (22.3-36.8) Seconds Sodium 139 (137-145) mmol/L Potassium 3.9 (3.4-5.0) mmol/L Chloride 102 (98-107) mmol/L Carbon Dioxide 26 (22-30) mmol/L Anion Gap 11 (4-12) mmol/L BUN 13 (7-17) mg/dL Creatinine 0.62 L (0.7-1.0) mg/dL Estim Creat Clear Calc 70 ml/min Estimated GFR > 60 (59 - ) Glucose 280 H (65-110) mg/dL Calcium 9.1 (8.4-10.2) mg/dL Total Bilirubin 0.7 (0.2-1.3) mg/dL AST 28 (14-36) U/L ALT 31 (6-35) U/L Alkaline Phosphatase 106 (38-126) U/L Troponin I < 0.012 (0.000-0.034) ng/mL Total Protein 8.0 (6.3-8.2) g/dL Albumin 4.6 (3.5-5.1) g/dL Imaging Data Radiologist's impression: Impressions Chest X-Ray 03/04/25 13:07 IMPRESSION: 1. No acute cardiopulmonary disease. Head/Neck CTA 03/04/25 13:50 IMPRESSION: 1. Small amount of atherosclerotic plaque with 0% stenosis of the right and left carotid bulbs relative to normal distal artery lumen diameter (NASCET criteria). 2. Normal brain with no acute intracranial process or abnormally enhancing brain lesions. 3. Unremarkable cerebral CT angiogram with no hemodynamically significant stenosis, thrombosis or aneurysm. Discharge Plan Discharge Clinical Impression: Conversion disorder, Anxiety Patient Disposition: Home Condition: Stable Instructions: Antibiotic Form Additional Instructions: Have close follow-up with your primary care physician. If you have any worsening symptoms then please call or return to the emergency department. Patient Language: Green[place]ic Prescriptions: No Action lorazepam [Ativan] 0.5 mg tablet 0.5 mg PO DAILY PRN (Reason: anxiety) Qty: 7 0RF Follow-up/Referrals: Pramod Fisher MD [Primary Care Provider] -
[2025-03-04] MEDS: LORazepam INJ (*CRX) 2 MG/ML VIAL 0.5 MG IV PUSH (14:17)
--- NOTE | 2025-03-04 14:21 | PC.NURSE ---
Talking clearly with no deficits.
[2025-03-04 15:48] VITALS: BP 118/65; PULSE 73; RESP 18; O2SAT 99
== END 2025-03-04 15:50 | disposition home or self-care (01) ==
PROVIDERS: Emergency Provider Emergency Medicine; PCP Family Medicine
DX: F44.9 Dissociative and conversion disorder, unspecified (principal); F41.9 Anxiety disorder, unspecified; E11.9 Type 2 diabetes mellitus without complications; Z79.4 Long term (current) use of insulin
CPT/HCPCS: 36415; 70496; 70498; 71045; 80053; 84484; 85025; 85610; 85730; 93005; 96374; 99284; J2060; Q9967